=== PATIENT | female | born 1945 | race Caucasian/White ===

== ENCOUNTER 2017-09-02 13:21 | Observation (INO) ==
[2017-09-02 13:51] LABS: Bacteria,Urine Many per hpf (None-Few); Bilirubin,Urine Small (Negative); Blood,Urine Small (Negative); Clarity,Urine Turbid (Clear); Color,Urine Dark Yellow (Yellow); Glucose,Urine (UA) 250 mg/dL (Normal); Hyaline Casts,Urine Few per lpf (None-Few); Ketones,Urine Negative (Negative); Leukocyte Esterase,Urine Moderate (Negative); Nitrite,Urine Positive (Negative); PH,Urine 5.5 pH Units (5.0-8.0); Protein,Urine 30 mg/dL (Neg-Trace); Specific Gravity,Urine 1.024 (1.010-1.025); Squamous Epithelial Cell,Urine Many per lpf (None-Few); Urobilinogen,Urine Normal (Normal); WBC,Urine TNTC per hpf (0-3)
[2017-09-02] MEDS ORDERED: cefTRIAXone 1,000 MG in Water for inj. (sterile) 20 ML 10 ML IVP ONE (15:04)
--- NOTE | 2017-09-02 15:08 | Emergency Department Note ---
Disposition Clinical Impression: UTI (urinary tract infection) Qualifiers: Urinary tract infection type: acute cystitis Hematuria presence: without hematuria Qualified Code(s): N30.00 - Acute cystitis without hematuria Altered mental status Qualifiers: Altered mental status type: unspecified Qualified Code(s): R41.82 - Altered mental status, unspecified Disposition: Admitted As Inpatient Condition: Good General Adult HPI - General Chief complaint: ED Urogenital-Female Stated complaint: confusion, burning while urinating Time Seen by Provider: 09/02/17 13:37 Source: patient Limitations: no limitations Nursing Notes Reviewed: Yes Vital Signs Reviewed: Yes - History of Present Illness HPI Narrative: 71-year-old female with a past medical history of diabetes presents with a couple of days of confusion and about 1-2 weeks of burning with urination and suprapubic discomfort. She states it feels like she has a urinary tract infection. Family members report that she is having some auditory hallucinations and some increased fatigue at home. Family members report that she is hearing voices that she states sounds like her having an affair however her is asleep at the time when family members check on him. She has not had a fever at home. She does not have a history of kidney stones. She is not complaining of flank pain. No nausea or vomiting. Radiation: non-radiation Pain Severity: moderate Pain Scale: 7 Quality: burning Improves with: nothing Worsens with: other (Urination) Associated symptoms: Reports: denies other symptoms Treatments Prior to Arrival: none - Related Data Home Medications Medication Instructions Recorded Confirmed Linagliptin [Tradjenta] 5 mg PO DAILY 09/02/17 09/02/17 Allergies Allergy/AdvReac Type Severity Reaction Status Date / Time codeine AdvReac Hallucinati Verified 09/02/17 17:24 ng morphine AdvReac Vomiting Verified 01/21/16 12:27 All systems ED: reviewed and negative except as stated. Constitutional: Denies: fever ENT ED: Denies: throat pain Cardiovascular: Denies: chest pain Respiratory: Denies: cough Gastrointestinal: Reports: abdominal pain. Denies: nausea, vomiting, diarrhea Musculoskeletal: Denies: back pain, neck pain Integumentary: Denies: rash Neurological: Denies: headache Endocrine: Reports: fatigue Past Medical History - Past Medical History Medical history: Reports: diabetes Psychiatric history: Reports: no psych history - Social History Smoking Status: Never smoker Smokeless Tobacco Status: No Alcohol use: Reports: none Drug use: Reports: none Physical Exam - General Limitations: no limitations General appearance: alert, in no apparent distress - Head Head exam: atraumatic - Eye Eye exam: Present: normal appearance - ENT ENT exam: normal exam - Neck Neck exam: Present: normal inspection - Chest Chest inspection: Present: normal inspection - Respiratory Respiratory exam: Present: normal lung sounds bilaterally. Absent: respiratory distress - Cardiovascular Cardiovascular exam: Present: regular rate, normal rhythm - Abdominal Exam Abdominal exam: Present: soft, tenderness (mild suprapubic, no guarding or rebound) - Extremities Exam Extremities exam: Present: normal inspection - Back Exam Back exam: Present: normal inspection - Neurological Exam Neurological exam: Present: alert, oriented X3, other (Is mildly slow to respond. Does not recognize she was having auditory hallucinations) - Psychiatric Psychiatric exam: Present: normal affect, normal mood - Skin Skin exam: Present: warm, dry Course Course Narrative: UA shows UTI. Will start rocephin. Will obtain labwork/CT head and admit for AMS. Negative head CT. Labwork unremarkable aside from UTI. Will admit. Vital Signs Temperature 97.6 F 09/02/17 13:26 Pulse Rate 76 09/02/17 13:26 Respiratory Rate 18 09/02/17 13:26 Blood Pressure 161/74 09/02/17 13:26 O2 Sat by Pulse Oximetry 98 09/02/17 13:26 Temperature 97.6 F 09/02/17 13:29 Pulse Rate 77 09/02/17 17:40 Respiratory Rate 18 09/02/17 13:29 Blood Pressure 159/88 09/02/17 17:40 O2 Sat by Pulse Oximetry 97 09/02/17 17:40 Oxygen Delivery Oxygen Delivery Room Air Medical Decision Making - Medical Records Medical records reviewed: Yes I reviewed the patient's medical records. - Lab Data Lab results reviewed: Yes I reviewed the patient's lab results. Result diagrams: 09/02/17 15:30 09/02/17 15:30 Lab Results 09/02/17 09/02/17 09/02/17 Range/Units 13:37 15:30 15:30 WBC 4.6 (4.3-11.1) K/mcL RBC 3.87 (3.82-4.97) M/mcL Hgb 11.6 (11.5-15.4) g/dL Hct 34.6 L (35.3-44.9) % MCV 89.4 (83.0-100.0) fL MCH 30.0 (28.0-33.3) pg MCHC 33.5 (31.6-35.5) g/dL RDW 11.3 L (11.5-14.5) % Plt Count 239 (140-400) K/mcL MPV 10.3 (9.4-12.4) fL Immature Gran % 0.4 (0-4) % Seg Neutrophils % 66.2 % Lymphocytes % 22.5 % Monocytes % 8.3 % Eosinophils % 2.2 % Basophils % 0.4 % Neutrophils # 3.0 (1.6-8.9) K/mcL Lymphocytes # 1.0 (0.6-4.6) K/mcL Monocytes # 0.4 (0.0-1.3) K/mcL Eosinophils # 0.1 (0.0-0.6) K/mcL Basophils # 0.0 (0.0-0.2) K/mcL Sodium 136 (136-145) mEq/L Potassium 4.3 (3.5-5.1) mEq/L Chloride 101 (98-107) mEq/L Carbon Dioxide 29 (23-29) mEq/L BUN 18 (8-23) mg/dL Creatinine 1.17 (0.60-1.20) mg/dL Est GFR ( Amer) 55 L (> 60) Est GFR (Non-Af Amer) 46 L (> 60) BUN/Creatinine Ratio 15 (6-26) Glucose 323 H (70-105) mg/dL Calculated Osmolality 296 (280-300) Lactic Acid (0.5-2.2) mmol/L Calcium 9.2 (8.6-10.3) mg/dL Total Bilirubin (0.3-1.0) mg/dL Direct Bilirubin (0.0-0.2) mg/dL Indirect Bilirubin (0.0-1.2) mg/dL AST (13-39) Units/L ALT (7-52) Units/L Alkaline Phosphatase (34-104) Units/L Ammonia (16-53) mcmol/L Troponin I (< 0.04) ng/mL Serum Total Protein (6.4-8.9) g/dL Albumin (3.5-5.7) g/dL Globulin (2.4-3.5) g/dL Albumin/Globulin Ratio (1.1-2.2) Urine Color Dark Yellow (Yellow) Urine Clarity Turbid A (Clear) Urine pH 5.5 (5.0-8.0) pH Units Ur Specific [place] 1.024 (1.010-1.025) Urine Protein 30 H (Neg-Trace) mg/dL Urine Glucose (UA) 250 H (Normal) mg/dL Urine Ketones Negative (Negative) mg/dL Urine Blood Small H (Negative) Urine Nitrite Positive A (Negative) Urine Bilirubin Small H (Negative) Urine Urobilinogen Normal (Normal) mg/dL Ur Leukocyte Esterase Moderate H (Negative) Urine Microscopic RBC 5-15 H (0-3) per hpf Urine Microscopic WBC TNTC H (0-3) per hpf Ur Squamous Epith Cells Many H (None-Few) per lpf Urine Bacteria Many H (None-Few) per hpf Hyaline Casts Few (None-Few) per lpf 09/02/17 09/02/17 09/02/17 Range/Units 15:30 15:30 15:30 WBC (4.3-11.1) K/mcL RBC (3.82-4.97) M/mcL Hgb (11.5-15.4) g/dL Hct (35.3-44.9) % MCV (83.0-100.0) fL MCH (28.0-33.3) pg MCHC (31.6-35.5) g/dL RDW (11.5-14.5) % Plt Count (140-400) K/mcL MPV (9.4-12.4) fL Immature Gran % (0-4) % Seg Neutrophils % % Lymphocytes % % Monocytes % % Eosinophils % % Basophils % % Neutrophils # (1.6-8.9) K/mcL Lymphocytes # (0.6-4.6) K/mcL Monocytes # (0.0-1.3) K/mcL Eosinophils # (0.0-0.6) K/mcL Basophils # (0.0-0.2) K/mcL Sodium (136-145) mEq/L Potassium (3.5-5.1) mEq/L Chloride (98-107) mEq/L Carbon Dioxide (23-29) mEq/L BUN (8-23) mg/dL Creatinine (0.60-1.20) mg/dL Est GFR ( Amer) (> 60) Est GFR (Non-Af Amer) (> 60) BUN/Creatinine Ratio (6-26) Glucose (70-105) mg/dL Calculated Osmolality (280-300) Lactic Acid 1.0 (0.5-2.2) mmol/L Calcium (8.6-10.3) mg/dL Total Bilirubin 0.2 L (0.3-1.0) mg/dL Direct Bilirubin 0.0 (0.0-0.2) mg/dL Indirect Bilirubin 0.2 (0.0-1.2) mg/dL AST 16 (13-39) Units/L ALT 13 (7-52) Units/L Alkaline Phosphatase 71 (34-104) Units/L Ammonia 24 (16-53) mcmol/L Troponin I (< 0.04) ng/mL Serum Total Protein 6.9 (6.4-8.9) g/dL Albumin 3.3 L (3.5-5.7) g/dL Globulin 3.6 H (2.4-3.5) g/dL Albumin/Globulin Ratio 0.9 L (1.1-2.2) Urine Color (Yellow) Urine Clarity (Clear) Urine pH (5.0-8.0) pH Units Ur Specific [place] (1.010-1.025) Urine Protein (Neg-Trace) mg/dL Urine Glucose (UA) (Normal) mg/dL Urine Ketones (Negative) mg/dL Urine Blood (Negative) Urine Nitrite (Negative) Urine Bilirubin (Negative) Urine Urobilinogen (Normal) mg/dL Ur Leukocyte Esterase (Negative) Urine Microscopic RBC (0-3) per hpf Urine Microscopic WBC (0-3) per hpf Ur Squamous Epith Cells (None-Few) per lpf Urine Bacteria (None-Few) per hpf Hyaline Casts (None-Few) per lpf 09/02/17 Range/Units 15:30 WBC (4.3-11.1) K/mcL RBC (3.82-4.97) M/mcL Hgb (11.5-15.4) g/dL Hct (35.3-44.9) % MCV (83.0-100.0) fL MCH (28.0-33.3) pg MCHC (31.6-35.5) g/dL RDW (11.5-14.5) % Plt Count (140-400) K/mcL MPV (9.4-12.4) fL Immature Gran % (0-4) % Seg Neutrophils % % Lymphocytes % % Monocytes % % Eosinophils % % Basophils % % Neutrophils # (1.6-8.9) K/mcL Lymphocytes # (0.6-4.6) K/mcL Monocytes # (0.0-1.3) K/mcL Eosinophils # (0.0-0.6) K/mcL Basophils # (0.0-0.2) K/mcL Sodium (136-145) mEq/L Potassium (3.5-5.1) mEq/L Chloride (98-107) mEq/L Carbon Dioxide (23-29) mEq/L BUN (8-23) mg/dL Creatinine (0.60-1.20) mg/dL Est GFR ( Amer) (> 60) Est GFR (Non-Af Amer) (> 60) BUN/Creatinine Ratio (6-26) Glucose (70-105) mg/dL Calculated Osmolality (280-300) Lactic Acid (0.5-2.2) mmol/L Calcium (8.6-10.3) mg/dL Total Bilirubin (0.3-1.0) mg/dL Direct Bilirubin (0.0-0.2) mg/dL Indirect Bilirubin (0.0-1.2) mg/dL AST (13-39) Units/L ALT (7-52) Units/L Alkaline Phosphatase (34-104) Units/L Ammonia (16-53) mcmol/L Troponin I < 0.03 (< 0.04) ng/mL Serum Total Protein (6.4-8.9) g/dL Albumin (3.5-5.7) g/dL Globulin (2.4-3.5) g/dL Albumin/Globulin Ratio (1.1-2.2) Urine Color (Yellow) Urine Clarity (Clear) Urine pH (5.0-8.0) pH Units Ur Specific [place] (1.010-1.025) Urine Protein (Neg-Trace) mg/dL Urine Glucose (UA) (Normal) mg/dL Urine Ketones (Negative) mg/dL Urine Blood (Negative) Urine Nitrite (Negative) Urine Bilirubin (Negative) Urine Urobilinogen (Normal) mg/dL Ur Leukocyte Esterase (Negative) Urine Microscopic RBC (0-3) per hpf Urine Microscopic WBC (0-3) per hpf Ur Squamous Epith Cells (None-Few) per lpf Urine Bacteria (None-Few) per hpf Hyaline Casts (None-Few) per lpf - Radiology Data Radiology results reviewed: Yes I reviewed the patient's radiology results. - EKG Data EKG #1 EKG attestation: Yes I reviewed and interpreted this EKG. EKG shows normal: sinus rhythm Rate: normal Rhythm: NSR When compared to previous EKG there are: no significant changes Interpretation: nonspecific ST-T wave changes Attestation Statement - Attestation Attestation: I, Alec Stratton, examined this patient and my medical decision-making was reviewed with the CANVAS MARKER/PA/Advanced Practice Nurse/Resident Physician. I agree with the documented findings, disposition and treatment plan as described except to the extent set forth below. 71-year-old female presents to emergency Department with concerns of dysuria and altered mental status. The only states symptoms have been increasing over the past month. They state she has paranoid delusions of her cheating on her and has difficulty remembering the year and current events. Symptoms have been progressive during the past month. Symptoms are similar to previous urinary tract infections. Daughter visited house today and brought her to the emergency department for evaluation. We will evaluate for possible urinary tract infection as well as other etiologies of altered mental status and patient will likely be admitted to the hospital for further care and evaluation.
[2017-09-02] MEDS ORDERED: 0.9 % Sodium Chloride 1,000 ML IVC ONE (15:11)
[2017-09-02 15:51] LABS: Basophils % 0.4 %; Eosinophils # 0.1 K/mcL (0.0-0.6); Eosinophils % 2.2 %; Hematocrit 34.6 % (35.3-44.9); Hemoglobin 11.6 g/dL (11.5-15.4); Immature Granulocytes % 0.4 % (0-4); Lymphocytes % 22.5 %; Mean Corpuscular HGB Conc 33.5 g/dL (31.6-35.5); Mean Corpuscular Volume 89.4 fL (83.0-100.0); Mean Platelet Volume 10.3 fL (9.4-12.4); Monocytes # 0.4 K/mcL (0.0-1.3); Monocytes % 8.3 %; Platelet Count 239 K/mcL (140-400); Red Blood Count 3.87 M/mcL (3.82-4.97); Red Cell Distribution Width 11.3 % (11.5-14.5); Segmented Neutrophils % 66.2 %
[2017-09-02 15:53] LABS: Albumin 3.3 g/dL (3.5-5.7); Albumin/Globulin Ratio 0.9 (1.1-2.2); Bilirubin,Indirect 0.2 mg/dL (0.0-1.2); Bilirubin,Total 0.2 mg/dL (0.3-1.0); Globulin 3.6 g/dL (2.4-3.5); Total Protein 6.9 g/dL (6.4-8.9)
[2017-09-02 15:54] LABS: Calcium 9.2 mg/dL (8.6-10.3); Potassium 4.3 mEq/L (3.5-5.1)
[2017-09-02] MEDS ORDERED: Naloxone 0.4 MG/ML INJ IVP PRN (20:11)
[2017-09-02] MEDS ORDERED: Acetaminophen 325 MG TABLET PO PRN (20:11)
[2017-09-02] MEDS ORDERED: Ondansetron ODT 4 MG TAB.RAPDIS SL PRN (20:42)
--- NOTE | 2017-09-02 20:49 | Internal Med History&Physical ---
<Oziel Daigle - Last Filed: 09/02/17 22:34> Date of Encounter: 09/02/17 Time of Encounter: 20:44 Assessment and Plan (1) UTI (urinary tract infection) Current visit: Yes Status: Acute Acute cystitis without hematuria, unspecified organism Patient is having symptoms of urinary tract infection alongside a urinalysis which did demonstrate UTI There is no indication of severe systemic infection at this time, patient's vitals remained stable Patient's altered mental status may be exacerbated by this I will treat the patient with IV Levaquin Qualifiers: Urinary tract infection type: acute cystitis Hematuria presence: without hematuria Qualified Code(s): N30.00 - Acute cystitis without hematuria (2) Diabetes mellitus Current visit: Yes Status: Acute Insulin-dependent Diabetes mellitus, poorly controlled Patient is hyperglycemic on arrival I will begin a low-dose sliding scale Qualifiers: Diabetes mellitus type: type 2 Diabetes mellitus complication status: without complication Diabetes mellitus assisted insulin use: with assisted use Qualified Code(s): E11.9 - Type 2 diabetes mellitus without complications ; Z79.4 - FPC (current) use of insulin; Z79.4 - watermelon inspector (current) use of insulin; Z79.4 - watermelon inspector (current) use of insulin; Z79.4 - [facility]PC ( current) use of insulin (3) Acute encephalopathy Current visit: Yes Status: Acute Likely secondary to UTI, not seen on exam currently She has apparently suffered from altered status and disorientation for several months AMS is apparently acute past 2 days Urinary tract infection likely does play a role in this altered mental status, history suggests that there may be a larger component to it as well Currently the patient denies any visual or auditory hallucinations, and she is alert and oriented 3 We will continue to watch her mental status as we treat her urinary tract infection CT negative labs not indicative of any encephalopathic state caused by metabolic sources (4) HTN (hypertension) Current visit: Yes Status: Acute Blood pressure is elevated at time of exam I will continue to watch and consider adding medications as needed Qualifiers: Hypertension type: unspecified Qualified Code(s): I10 - Essential (primary ) hypertension (5) DVT prophylaxis Current visit: Yes Status: Acute Subcutaneous heparin Internal Medicine - H&P: HPI Chief complaint: UTI and Altered mental status Admitted From: Emergency Dept Plans for Post Hospital Care: Home History of present illness: Ms. Oliver is a 71 year old female with a history of DM who presented to the ED with symptoms consistent with UTI as well as some confusion. The patient was accompanied by her daughter at the time of presentation, however daughter has left since then. I did speak with the patient's other daughter via telephone and the patient's history is elicited from both the patient and family members. The patient apparently has been suffering from the flu for approximately 3 weeks and was very sick with upper respiratory like symptoms. Over the past week, the patient apparently did have some improvement in symptoms, however as of today she was very confused and disoriented, and she was apparently complaining that there is some pain in the suprapubic area as well as urinary frequency with burning. Her daughter who is a nurse brought her to the emergency room for suspected urinary tract infection. She says that these symptoms of urinary frequency, suprapubic tenderness, burning on urination have been going on for several weeks but were worse in the past 24-48 hours. She denies any blood, discharge, fever, chills. The patient initially denied any issues with confusion or altered for hallucinations, however upon further questioning she did say that she has had some confusion over the past month or 2 and she does not know why. I spoke with the patient's daughter Juana he said that over the past several months she has been having more issues with forgetfulness and confusion. She apparently has complained to her daughter's of conversations that she has heard that did not happen, and she has some paranoid delusions about people being out to get her. These issues appear to occur mostly at nights. Additionally, apparently the patient has had problems with orientation to time and believes that it is around [place] time very frequently. She has no other acute complaints Past Med Surg Social Fam HX - Past Medical History Medical history: diabetes Psychiatric history: no psych history - Past Surgical History Surgical History: appendectomy, cholecystectomy - Social History Smoking Status: Never smoker Smokeless Tobacco Status: No Alcohol use: none Drug use: none Internal Medicine - H&P: Meds Linagliptin [Tradjenta] 5 mg PO DAILY 09/02/17 [History] 3 Allergy/AdvReac Type Severity Reaction Status Date / Time codeine AdvReac Hallucinati Verified 09/02/17 17:24 ng morphine AdvReac Vomiting Verified 01/21/16 12:27 All Systems PM: A 10-system review of systems was performed and is negative for pertinent findings except as documented above in the HPI. Review of systems: - Constitutional: Denies fevers, chills, weight loss - Head/Neck: Denies MCCOY, neck stiffness - EENT: admits to improving cough and congestion, denies dysphagia or odynaphagia - CVS: Denies chest pain, palpitations, MIRANDA, orthopnea, edema, PND, - Pulm: Denies SOB, worsening cough, sputum, hematemesis, wheezing - GI: Denies abdominal pain, anorexia, nausea, vomiting, diarrhea, constipation , melena. Admits to some suprapubic tenderness - : Admits to increased urgency, dysuria Denies hematuria - Heme: Denies ease of bleeding or bruising - MSK: Denies joint pain, limited ROM - Skin: Denies rashes, ulcers, color changes, - Neuro: Denies MCCOY, paresthesias, focal deficits, ataxia. Admits to confusion recently - Constitutional Vitals: Temp Pulse Resp BP Pulse Ox 97.7 F 68 15 155/82 97 09/02/17 19:08 09/02/17 19:08 09/02/17 19:08 09/02/17 19:08 09/02/17 19:08 Exam: Gen.: Vitals noted. No acute distress. AAOx3 HEENT: PERRL/EOMI, oropharynx clear, Normocephalic, atraumatic. Mild hirsutism on the face Neck: Supple. No adenopathy. Cardiac: RRR, no murmur, +S1/S2 Pulmonary: CTA bilaterally, no wheezes, rales or rhonchi, equal chest expansion Abdomen: soft, nontender, BS noted, no guarding Back: Nontender throughout. Extremities: no BLE edema, nontender calf, no cyanosis or clubbing Neuro: A&Ox3, moves all extremities, no focal deficits Psych: Appropriate mood and behavior Internal Med - H&P Results - Labs CBC & Chem 7: 09/02/17 15:30 09/02/17 15:30 <Edmund Bates - Last Filed: 09/03/17 05:16> Date of Encounter: 09/02/17 Time of Encounter: 23:00 - Constitutional Constitutional: fever(s), no chills, no night sweats - EENT Eyes: no blurry vision, no change in vision Nose, mouth and throat: no nasal congestion, no sore throat - Cardiovascular Cardiovascular ROS IM: no chest pain, no dyspnea - Respiratory Respiratory: no cough, no pain on inspiration, no excessive phlegm production, no change in phlegm color - Gastrointestinal Gastrointestinal: abdominal pain (suprpubic), no hematemesis, no hematochezia, no melena - Genitourinary Genitourinary: urinary frequency, no dysuria - Musculoskeletal Musculoskeletal ROS IM: no arthralgias, no back pain - Integumentary Integumentary IM: no rash, no jaundice - Neurological Neurological ROS: no focal weakness, no frequent falls, no headache(s) - Psychiatric Psychiatric: no anxiety, no depression - Endocrine Endocrine IM: no polydipsia, no polyuria - Allergic/Immunologic Allergic/Immunologic: no wheezing, no GI upset with certain foods - Constitutional Vitals: Temp Pulse Resp BP Pulse Ox 97.7 F 82 15 168/77 97 09/03/17 03:23 09/03/17 03:23 09/03/17 03:23 09/03/17 03:23 09/03/17 03:23 General appearance: Present: cooperative, A&O X 2, pleasant, answers questions appropriately (for the most part ) - Head Head exam: Present: normal inspection - Eye Eye exam: Present: PERRL. Absent: scleral icterus Pupils: Present: normal accommodation - ENT ENT exam: Present: mucous membranes dry, normal exam - Neck Neck exam general surgery: Present: supple - Respiratory Respiratory exam: Present: CTAB. Absent: rales, wheezes - Cardiovascular Cardiovascular exam: Present: RRR, +S1, +S2 - GI/Abdominal GI/Abdominal exam: Present: normal bowel sounds, soft, tenderness (mild suprapubic pain). Absent: hepatomegaly, splenomegaly - Extremities Exam Extremities exam: Present: normal capillary refill, warm. Absent: calf tenderness - Neurological Exam Neurological exam: Present: alert, CN II-XII intact, no focal deficits - Psychiatric Psychiatric exam: Present: normal affect, normal mood Internal Med - H&P Results - Labs CBC & Chem 7: 09/02/17 15:30 09/02/17 15:30 - Attending Attestation I discussed the patient [place], PMH, ROS, lab data, and exam findings with Dr. Daigle. I then saw and examined patient independently as well. Patient has been increasingly confused and disoriented as reported to me by ER and staff. However, upon my assessment, patient had minimal confusion. She feels a little better than earlier in the evening. She admits to UTI symptoms. Family is not present to confirm her current mental and cognitive state. Patient has UTI, and it is the likely culprit for her encephalopathy. Other than my comments above and noted exam findings, I agree with Dr. Daigle' s assessment and plan.
[2017-09-02] MEDS ORDERED: *HR* Dextrose 50 % in Water (Syg) 50 ML SYRINGE IVP PRN (21:17)
[2017-09-02] MEDS ORDERED: Dextrose Gel 15 GM/37.5 ML TUBE PO PRN ×2 (21:17)
[2017-09-02] MEDS ORDERED: D5% in Water 1,000 ML IVC PRN (21:17)
[2017-09-03] MEDS ORDERED: *HR* LORazepam 1 MG TABLET PO ONE (00:21)
[2017-09-03] MEDS ORDERED: 0.9 % Sodium Chloride 1,000 ML IVC SCH (00:45)
[2017-09-03] MEDS: *HR* Heparin 5,000 UNIT/ML VIAL SQ SCH ×2 (04:50→16:58)
[2017-09-03 06:50] LABS: BUN/Creatinine Ratio 13 (6-26); Blood Urea Nitrogen 11 mg/dL (8-23); Calcium 8.9 mg/dL (8.6-10.3); Carbon Dioxide 27 mEq/L (23-29); Chloride 104 mEq/L (98-107); Glucose 236 mg/dL (70-105); Osmolality,Calculated 293 (280-300); Potassium 3.9 mEq/L (3.5-5.1); Sodium 138 mEq/L (136-145); eGFR For African Americans > 60 (> 60); eGFR For Non-African Americans > 60 (> 60)
[2017-09-03 07:29] LABS: Basophils % 0.5 %; Eosinophils # 0.1 K/mcL (0.0-0.6); Eosinophils % 2.1 %; Hematocrit 35.2 % (35.3-44.9); Hemoglobin 11.8 g/dL (11.5-15.4); Immature Granulocytes % 0.5 % (0-4); Lymphocytes % 23.2 %; Mean Corpuscular HGB Conc 33.5 g/dL (31.6-35.5); Mean Corpuscular Hemoglobin 29.8 pg (28.0-33.3); Mean Corpuscular Volume 88.9 fL (83.0-100.0); Mean Platelet Volume 10.4 fL (9.4-12.4); Monocytes # 0.3 K/mcL (0.0-1.3); Monocytes % 7.5 %; Neutrophils # 2.8 K/mcL (1.6-8.9); Platelet Count 261 K/mcL (140-400); Red Blood Count 3.96 M/mcL (3.82-4.97); Red Cell Distribution Width 11.2 % (11.5-14.5); Segmented Neutrophils % 66.2 %
[2017-09-03] MEDS: Insulin LISPRO 300 UNITS/3 ML VIAL SQ SCH ×3 (08:17→16:57)
[2017-09-03] MEDS ORDERED: Levofloxacin 750 MG/150 ML 750 MG/150 ML BAG IVPB SCH (09:00)
--- NOTE | 2017-09-03 18:42 | Internal Med Progress Note ---
Date of Encounter: 09/04/17 Time of Encounter: 11:00 - Assessment and plan (1) UTI (urinary tract infection) Current Visit: Yes Status: Acute Assessment and plan: -Urinalysis positive for pyuria; cultures pending -Continue IV Levaquin Qualifiers: Urinary tract infection type: acute cystitis Hematuria presence: without hematuria Qualified Code(s): N30.00 - Acute cystitis without hematuria (2) Acute encephalopathy Current Visit: Yes Status: Acute Assessment and plan: -Suspect secondary to the above; baseline unsure as suspect some underlying dementia (3) Diabetes mellitus Current Visit: Yes Status: Acute Assessment and plan: -Coverage with sliding scale insulin Qualifiers: Diabetes mellitus type: type 2 Diabetes mellitus complication status: without complication Diabetes mellitus long-term insulin use: with intermediate project manager use Qualified Code(s): E11.9 - Type 2 diabetes mellitus without complications ; Z79.4 - intermodal truck driver (current) use of insulin; Z79.4 - residential (current) use of insulin; Z79.4 - residential (current) use of insulin; Z79.4 - residential ( current) use of insulin (4) DVT prophylaxis Current Visit: Yes Status: Acute Assessment and plan: Subcutaneous heparin - Subjective Interval history: Patient's confusion has improved and is alert and oriented 2 Continue treatment for acute cystitis with IV Levaquin - Constitutional Vitals: Temp Pulse Resp BP Pulse Ox 97.7 F 86 18 147/72 97 09/03/17 15:13 09/03/17 15:13 09/03/17 15:13 09/03/17 15:13 09/03/17 15:13 General appearance: Present: cooperative, A&O X 2, pleasant, answers questions appropriately (for the most part ) - Neck Neck exam general surgery: Present: lymphadenopathy, supple, trachea midline - Respiratory Respiratory exam: Present: CTAB. Absent: accessory muscle use, rales, rhonchi, wheezes - Cardiovascular Cardiovascular exam: Present: RRR, +S1, +S2. Absent: diastolic murmur, gallop, rubs, systolic murmur Internal Medicine: Result - Labs CBC & Chem 7: 09/03/17 06:15 09/03/17 06:15 Labs: Short CBC 09/03/17 Range/Units 06:15 WBC 4.3 (4.3-11.1) K/mcL Hgb 11.8 (11.5-15.4) g/dL Hct 35.2 L (35.3-44.9) % Plt Count 261 (140-400) K/mcL Neutrophils # 2.8 (1.6-8.9) K/mcL BMP 09/03/17 06:15 Sodium 138 Potassium 3.9 Chloride 104 Carbon Dioxide 27 BUN 11 Creatinine 0.85 Glucose 236 H Calcium 8.9 Consult Discharge Plan - Plan Referrals: Luigi Lindo MD [Primary Care Provider] -
[2017-09-03] MEDS ORDERED: Insulin LISPRO 300 UNITS/3 ML VIAL SQ SCH (21:00)
[2017-09-04] MEDS ORDERED: Haloperidol Lactate 5 MG/ML VIAL IVP ONE
[2017-09-04] MEDS: *HR* Heparin 5,000 UNIT/ML VIAL SQ SCH (05:20)
[2017-09-04] MEDS: Insulin LISPRO 300 UNITS/3 ML VIAL SQ SCH ×2 (08:31→12:02)
[2017-09-04 08:59] LABS: Basophils % 0.3 %; Eosinophils # 0.1 K/mcL (0.0-0.6); Eosinophils % 2.1 %; Hematocrit 32.9 % (35.3-44.9); Hemoglobin 11.2 g/dL (11.5-15.4); Immature Granulocytes % 0.3 % (0-4); Lymphocytes # 1.1 K/mcL (0.6-4.6); Lymphocytes % 34.1 %; Mean Corpuscular Hemoglobin 30.1 pg (28.0-33.3); Mean Corpuscular Volume 88.4 fL (83.0-100.0); Mean Platelet Volume 10.4 fL (9.4-12.4); Monocytes # 0.3 K/mcL (0.0-1.3); Monocytes % 10.4 %; Neutrophils # 1.7 K/mcL (1.6-8.9); Platelet Count 229 K/mcL (140-400); Red Blood Count 3.72 M/mcL (3.82-4.97); Red Cell Distribution Width 11.4 % (11.5-14.5); Segmented Neutrophils % 52.8 %
[2017-09-04 09:13] LABS: BUN/Creatinine Ratio 12 (6-26); Blood Urea Nitrogen 11 mg/dL (8-23); Calcium 8.9 mg/dL (8.6-10.3); Carbon Dioxide 29 mEq/L (23-29); Chloride 104 mEq/L (98-107); Glucose 222 mg/dL (70-105); Osmolality,Calculated 292 (280-300); Sodium 138 mEq/L (136-145); eGFR For African Americans > 60 (> 60); eGFR For Non-African Americans 59 (> 60)
[2017-09-04 11:04] VITALS: BP 144/77
--- NOTE | 2017-09-04 14:17 | Discharge Summary ---
Date of Encounter: 09/04/17 Time of Encounter: 11:00 - Discharge Diagnosis (1) UTI (urinary tract infection) Priority: Primary Status: Acute Qualifiers: Urinary tract infection type: acute cystitis Hematuria presence: without hematuria Qualified Code(s): N30.00 - Acute cystitis without hematuria (2) Acute encephalopathy Priority: Secondary Status: Acute (3) Diabetes mellitus Priority: Secondary Status: Acute Qualifiers: Diabetes mellitus type: type 2 Diabetes mellitus complication status: without complication Diabetes mellitus fci insulin use: with fci use Qualified Code(s): E11.9 - Type 2 diabetes mellitus without complications ; Z79.4 - skilled nursing (current) use of insulin; Z79.4 - intermediate project manager (current) use of insulin; Z79.4 - intermediate project manager (current) use of insulin; Z79.4 - skilled nursing ( current) use of insulin - Discharge Medications Prescriptions: Levofloxacin [Levaquin] 500 mg PO DAILY 3 Days #3 tablet Home Medications: Linagliptin [Tradjenta] 5 mg PO DAILY 09/02/17 [History] Levofloxacin [Levaquin] 500 mg PO DAILY 3 Days #3 tablet 09/04/17 [Rx] Allergies/Adverse Reactions: 3 Allergy/AdvReac Type Severity Reaction Status Date / Time codeine AdvReac Hallucinati Verified 09/02/17 17:24 ng morphine AdvReac Vomiting Verified 01/21/16 12:27 Procedures/tests Complete & Pending: Procedures Performed prior 72 hours Category Date Time Status ECG 12 lead ECG [ECG] Stat Y 09/03/17 23:35 Ordered Date of admission: 09/02/17 17:25 Primary care physician: Luigi Lindo MD Consults: 09/04/17 00:03 Consult to Events Administrative Assistant [CONS] Routine Reason for SW Consult: Lives with spouse who is alcoholic. Lost job 3-4 weeks ago. "Under a lot of stress." - Patient Status Disposition: Home, Self-Care Condition: Good - Discharge Instructions Follow Up With: Luigi Lindo MD [Primary Care Provider] - Hospital course: Patient is a 71-year-old female with past medical history significant for diabetes who presented to the ER on 09/02/17 with urinary symptoms and some confusion. Family reports that patient has been confused over the last several days in addition to complaining of urinary symptoms so decided to bring patient to the ER for evaluation. In the ER, patient was found to have pyuria; CT of the head showed no acute intracranial process. Patient was admitted to the medical floor for treatment of acute cystitis. During patients hospital stay her confusion improved after treatment with IV Levaquin. Suspect patient is at her baseline mentation and will discharge home to continue a 3 day course of Levaquin. Patient is to follow-up with her primary care provider. - Time Spent with Patient Total time spent providing and/or coordinating discharge services: Less than 30 minutes - Constitutional Vitals: Temp Pulse Resp BP Pulse Ox 98.1 F 77 14 144/77 98 09/04/17 10:51 09/04/17 10:51 09/04/17 10:51 09/04/17 10:51 09/04/17 10:51 General appearance: Present: cooperative, A&O X 2, pleasant, answers questions appropriately (for the most part ) - Respiratory Respiratory exam: Present: CTAB. Absent: accessory muscle use, rales, rhonchi, wheezes - Cardiovascular Cardiovascular exam: Present: RRR, +S1, +S2. Absent: diastolic murmur, gallop, rubs, systolic murmur
--- NOTE | 2017-09-06 06:52 | Electrocardiograph Report ---
[place] [id number] Test Date: 2017-09-02 Pat Name: Mimi Oliver Department: 104 Room: 3A31 Gender: F Probation Worker: : 1945 Requested By: Jose Ugalde Order Number: [id number] Reading MD: Juliano La MD Measurements Intervals [place] Rate: 69 P: 29 [place]: 145 QRS: -17 QRSD: 87 T: 66 QT: 400 QTc: 418 Interpretive Statements SINUS RHYTHM WITH OCCASIONAL SUPRAVENTRICULAR PREMATURE COMPLEXES LEFT VENTRICULAR HYPERTROPHY AND ST-T CHANGE Electronically Signed On 09-06-2017 6:51:07 EST by Juliano La MD
--- NOTE | 2017-09-07 09:18 | Electrocardiograph Report ---
[place] [id number] Test Date: 2017-09-03 Pat Name: Mimi Oliver Department: 115 Room: 3A31 Gender: F Commercial Review Appraiser: [id number] : 1945 Requested By: Dixie Villegas Order Number: [id number] Reading MD: Juliano La MD Measurements Intervals [place] Rate: 74 P: 44 SC: 148 QRS: -19 QRSD: 84 T: 63 QT: 395 QTc: 423 Interpretive Statements SINUS RHYTHM Electronically Signed On 09-07-2017 9:17:35 EST by Juliano La MD
== END 2017-09-04 15:45 | disposition home or self-care (01) | DRG 689 ==
LOC: EMEROO 13:21 → INTOOBSV 17:25 → 3ANU 17:25
PROVIDERS: ADMIT Hospitalist; ATTEND Hospitalist

== ENCOUNTER 2018-03-08 11:25 | Observation (INO) ==
[2018-03-08] MEDS ORDERED: Aspirin 81 MG TAB.CHEW PO ONE (11:34)
[2018-03-08] MEDS ORDERED: Nitroglycerin 0.4 MG TAB.SUBL SL ONE (11:34)
--- NOTE | 2018-03-08 11:51 | Emergency Department Note ---
Disposition Clinical Impression: Chest pain Qualifiers: Chest pain type: unspecified Qualified Code(s): R07.9 - Chest pain, unspecified Disposition: Admitted As Inpatient Condition: Good Forms: ED Satisfaction Letter Time of Disposition: 12:48 General Adult HPI - General Stated complaint: CP Time Seen by Provider: 03/08/18 11:32 Source: patient, family Mode of arrival: ambulatory Limitations: no limitations Nursing Notes Reviewed: Yes Vital Signs Reviewed: Yes - History of Present Illness HPI Narrative: Patient is a 72-year-old female that presents emergency department with acute onset chest pain. Patient states that the pain began shortly prior to arrival. Patient states that the pain began in her right arm and went into her shoulder and neck and then developed chest pain on the center of her chest. Patient describes it as pressure. Patient states that she has never had anything like this before. Patient states that nothing really seems to make her pain any better or worse. Patient also reports that she has had some associated shortness of breath and nausea but has not been diaphoretic. Patient is very shaky go to take for her chest pain prior to arrival. Pain Scale: 7 - Related Data Home Medications Medication Instructions Recorded Confirmed Linagliptin [Tradjenta] 5 mg PO DAILY 09/02/17 09/02/17 Previous Rx's Medication Instructions Recorded Levofloxacin [Levaquin] 500 mg PO DAILY 3 Days #3 tablet 09/04/17 methylPREDNISolone [Medrol] 4 mg PO TAPER #21 tablet 10/28/17 Allergies Allergy/AdvReac Type Severity Reaction Status Date / Time codeine AdvReac Hallucinati Verified 10/08/17 08:47 ng morphine AdvReac Vomiting Verified 10/08/17 08:47 All systems ED: reviewed and negative except as stated. Cardiovascular: Reports: chest pain Respiratory: Reports: dyspnea Musculoskeletal: Reports: other (right arm pain) Integumentary: Reports: rash (on abdomen ) Past Medical History - Past Medical History Medical history: Reports: diabetes, hyperlipidemia Surgical history: Reports: appendectomy, cholecystectomy Psychiatric history: Reports: no psych history - Social History Smoking Status: Never smoker Smokeless Tobacco Status: No Alcohol use: Reports: rarely Drug use: Reports: none Physical Exam - General Limitations: no limitations General appearance: alert, in distress - Head Head exam: atraumatic, normocephalic - Eye Eye exam: Present: normal appearance, EOMI - Respiratory Respiratory exam: Present: normal lung sounds bilaterally. Absent: respiratory distress, wheezes - Cardiovascular Cardiovascular exam: Present: regular rate, normal rhythm, normal heart sounds, +S1, +S2 - Abdominal Exam Abdominal exam: Present: soft, Non-Tender, normal bowel sounds - Neurological Exam Neurological exam: Present: alert, oriented X3 - Psychiatric Psychiatric exam: Present: normal affect, normal mood - Skin Skin exam: Present: warm, dry, intact, rash (around umbilicus) Course Vital Signs Temperature 97.5 F L 03/08/18 11:30 Pulse Rate 80 03/08/18 11:30 Respiratory Rate 14 03/08/18 11:30 Blood Pressure 186/92 03/08/18 11:30 O2 Sat by Pulse Oximetry 100 03/08/18 11:30 Temperature 97.5 F L 03/08/18 11:30 Pulse Rate 80 03/08/18 11:30 Respiratory Rate 14 03/08/18 11:30 Blood Pressure 171/81 03/08/18 11:40 O2 Sat by Pulse Oximetry 100 03/08/18 11:37 Oxygen Delivery Oxygen Delivery Room Air Medical Decision Making - MDM Narrative Medical decision making narrative: Due to the patient presenting to the emergency department with chest pain and short of breath we will obtain CBC, BMP, troponin chest x-ray EKG. patient also be given aspirin and nitroglycerin here in the emergency department. Patient's troponin was negative. Chest x-ray did not show any acute cardio pulmonary process. EKG did show some mild depressions. Patient does have a mild leukopenia of 4.1 which is nonspecific. Patient does have decreased kidney function however this appears to be chronic in nature. Due to the patient having some depressions on EKG and chest pain that has now resolved feel that the patient does need to be admitted to the hospital for further evaluation and management. I called and spoke to Dr. John and he has accepted the patient to their service. Patient be admitted to the hospital at this time for further evaluation and management. - Medical Records Medical records reviewed: Yes I reviewed the patient's medical records. - Lab Data Lab results reviewed: Yes I reviewed the patient's lab results. Result diagrams: 03/08/18 11:40 03/08/18 11:40 Lab Results 03/08/18 03/08/18 03/08/18 Range/Units 11:40 11:40 11:40 WBC 4.1 L (4.3-11.1) K/mcL RBC 4.35 (3.82-4.97) M/mcL Hgb 13.8 (11.5-15.4) g/dL Hct 39.3 (35.3-44.9) % MCV 90.3 (83.0-100.0) fL MCH 31.7 (28.0-33.3) pg MCHC 35.1 (31.6-35.5) g/dL RDW 12.7 (11.5-14.5) % Plt Count 142 (140-400) K/mcL MPV 10.9 (9.4-12.4) fL Immature Gran % 0.2 (0-4) % Seg Neutrophils % 62.3 % Lymphocytes % 26.1 % Monocytes % 7.9 % Eosinophils % 3.0 % Basophils % 0.5 % Neutrophils # 2.5 (1.6-8.9) K/mcL Lymphocytes # 1.1 (0.6-4.6) K/mcL Monocytes # 0.3 (0.0-1.3) K/mcL Eosinophils # 0.1 (0.0-0.6) K/mcL Basophils # 0.0 (0.0-0.2) K/mcL PT 10.2 (9.4-12.1) Seconds INR 0.9 APTT 34.7 (26.0-36.0) Seconds Sodium 138 (136-145) mEq/L Potassium 4.4 (3.5-5.1) mEq/L Chloride 106 (98-107) mEq/L Carbon Dioxide 24 (23-29) mEq/L BUN 25 H (8-23) mg/dL Creatinine 1.07 (0.60-1.20) mg/dL Est GFR ( Amer) > 60 (> 60) Est GFR (Non-Af Amer) 50 L (> 60) BUN/Creatinine Ratio 23 (6-26) Glucose 319 H (70-105) mg/dL Calculated Osmolality 303 H (280-300) Calcium 9.8 (8.6-10.3) mg/dL - Radiology Data Radiology results reviewed: Yes I reviewed the patient's radiology results. Chest X-Ray 03/08/18 11:34 IMPRESSION: Stable appearing chest without acute cardiopulmonary process. D/ / Jey Barber MD / Jey Barber MD Interpreting Provider: Jey Barber MD - EKG Data EKG #1 EKG attestation: Yes I reviewed and interpreted this EKG. EKG results narrative: EKG shows a sinus rhythm at a rate of 75 bpm, TN interval of 129, QRS duration 86, QTc of 445 with a normal axis. There is evidence of mild ST elevation in aVR as well as mild depressions in V3, V4, V5 and V6. Compared to previous EKG on 10/08/17 which showed a sinus rhythm and rate of 68 bpm. Heart Score - Score History: Moderately Suspicious EKG: Significant ST-Depression Age: Greater than 65 Risk Factors: 1-2 risk factors Troponin: Less than normal limit HEART Score Total: 6
[2018-03-08 11:58] LABS: Basophils % 0.5 %; Eosinophils # 0.1 K/mcL (0.0-0.6); Hematocrit 39.3 % (35.3-44.9); Hemoglobin 13.8 g/dL (11.5-15.4); Immature Granulocytes % 0.2 % (0-4); Lymphocytes # 1.1 K/mcL (0.6-4.6); Lymphocytes % 26.1 %; Mean Corpuscular HGB Conc 35.1 g/dL (31.6-35.5); Mean Corpuscular Hemoglobin 31.7 pg (28.0-33.3); Mean Corpuscular Volume 90.3 fL (83.0-100.0); Mean Platelet Volume 10.9 fL (9.4-12.4); Monocytes # 0.3 K/mcL (0.0-1.3); Monocytes % 7.9 %; Neutrophils # 2.5 K/mcL (1.6-8.9); Platelet Count 142 K/mcL (140-400); Red Blood Count 4.35 M/mcL (3.82-4.97); Red Cell Distribution Width 12.7 % (11.5-14.5); Segmented Neutrophils % 62.3 %
[2018-03-08 12:03] LABS: INR 0.9; Prothrombin Time 10.2 Seconds (9.4-12.1)
[2018-03-08 12:05] LABS: Activated Partial Thrombo Time 34.7 Seconds (26.0-36.0)
--- NOTE | 2018-03-08 12:09 | Emergency Department Note ---
Disposition Clinical Impression: Chest pain Disposition: Admitted As Inpatient Condition: Good General Adult HPI - General Chief complaint: ED Chest Pain Stated complaint: CP Time Seen by Provider: 03/08/18 11:32 Source: patient, family Mode of arrival: ambulatory Limitations: no limitations - History of Present Illness Pain Scale: 7 - Related Data Home Medications Medication Instructions Recorded Confirmed Insulin DETEMIR [Levemir] 4 unit SQ BID 03/08/18 03/08/18 Allergies Allergy/AdvReac Type Severity Reaction Status Date / Time codeine Allergy Difficulty Verified 03/08/18 12:59 Swallowing morphine Allergy Difficulty Verified 03/08/18 12:59 Swallowing Cardiovascular: Reports: chest pain Respiratory: Reports: dyspnea Musculoskeletal: Reports: other (right arm pain) Integumentary: Reports: rash (on abdomen ) Past Medical History - Past Medical History Medical history: Reports: diabetes, hyperlipidemia Surgical history: Reports: appendectomy, cholecystectomy Psychiatric history: Reports: no psych history - Social History Smoking Status: Never smoker Smokeless Tobacco Status: No Alcohol use: Reports: rarely Drug use: Reports: none Physical Exam - General Limitations: no limitations General appearance: alert, in distress Course Vital Signs Temperature 97.5 F L 03/08/18 11:30 Pulse Rate 80 03/08/18 11:30 Respiratory Rate 14 03/08/18 11:30 Blood Pressure 186/92 03/08/18 11:30 O2 Sat by Pulse Oximetry 100 03/08/18 11:30 Temperature 98.1 F 03/08/18 13:48 Pulse Rate 74 03/08/18 13:48 Respiratory Rate 15 03/08/18 13:48 Blood Pressure 152/77 03/08/18 13:48 O2 Sat by Pulse Oximetry 97 03/08/18 13:48 Oxygen Delivery Oxygen Delivery Room Air Medical Decision Making - Lab Data Result diagrams: 03/08/18 11:40 03/08/18 11:40 Lab Results 03/08/18 03/08/18 03/08/18 Range/Units 11:40 11:40 11:40 WBC 4.1 L (4.3-11.1) K/mcL RBC 4.35 (3.82-4.97) M/mcL Hgb 13.8 (11.5-15.4) g/dL Hct 39.3 (35.3-44.9) % MCV 90.3 (83.0-100.0) fL MCH 31.7 (28.0-33.3) pg MCHC 35.1 (31.6-35.5) g/dL RDW 12.7 (11.5-14.5) % Plt Count 142 (140-400) K/mcL MPV 10.9 (9.4-12.4) fL Immature Gran % 0.2 (0-4) % Seg Neutrophils % 62.3 % Lymphocytes % 26.1 % Monocytes % 7.9 % Eosinophils % 3.0 % Basophils % 0.5 % Neutrophils # 2.5 (1.6-8.9) K/mcL Lymphocytes # 1.1 (0.6-4.6) K/mcL Monocytes # 0.3 (0.0-1.3) K/mcL Eosinophils # 0.1 (0.0-0.6) K/mcL Basophils # 0.0 (0.0-0.2) K/mcL PT 10.2 (9.4-12.1) Seconds INR 0.9 APTT 34.7 (26.0-36.0) Seconds Sodium 138 (136-145) mEq/L Potassium 4.4 (3.5-5.1) mEq/L Chloride 106 (98-107) mEq/L Carbon Dioxide 24 (23-29) mEq/L BUN 25 H (8-23) mg/dL Creatinine 1.07 (0.60-1.20) mg/dL Est GFR ( Amer) > 60 (> 60) Est GFR (Non-Af Amer) 50 L (> 60) BUN/Creatinine Ratio 23 (6-26) Glucose 319 H (70-105) mg/dL Calculated Osmolality 303 H (280-300) Calcium 9.8 (8.6-10.3) mg/dL Troponin I < 0.03 (< 0.04) ng/mL Attestation Statement - Attestation Attestation: I examined this patient and my medical decision-making was reviewed with the Resident Physician. I agree with the documented findings, disposition and treatment plan as described except to the extent set forth below. Patient presents to the ED with a chief complaint of chest pain. Onset just prior to arrival. On my evaluation the chest pain is resolved but she still having pain in the left shoulder. Patient states is been years since she had a stress test. On examination she is in no acute distress. The pain in her left shoulder is not reproducible to palpation. Her lungs are clear. Plan. EKG has some ST depressions. These appear new since the last one. Cardiac workup and likely admission. Nitroglycerin attempting to get her pain-free at this time.
[2018-03-08 12:11] LABS: BUN/Creatinine Ratio 23 (6-26); Blood Urea Nitrogen 25 mg/dL (8-23); Calcium 9.8 mg/dL (8.6-10.3); Carbon Dioxide 24 mEq/L (23-29); Chloride 106 mEq/L (98-107); Glucose 319 mg/dL (70-105); Osmolality,Calculated 303 (280-300); Potassium 4.4 mEq/L (3.5-5.1); Sodium 138 mEq/L (136-145); eGFR For Non-African Americans 50 (> 60)
[2018-03-08 12:18] LABS: Troponin I < 0.03 ng/mL (< 0.04)
[2018-03-08] MEDS ORDERED: Naloxone 0.4 MG/ML INJ IVP PRN (13:19)
[2018-03-08] MEDS ORDERED: Dextrose Gel 15 GM/37.5 ML TUBE PO PRN ×2 (13:29)
[2018-03-08] MEDS ORDERED: D5% in Water 1,000 ML IVC PRN (13:29)
[2018-03-08] MEDS ORDERED: *HR* Dextrose 50 % in Water (Syg) 50 ML SYRINGE IVP PRN (13:29)
--- NOTE | 2018-03-08 13:34 | Internal Med History&Physical ---
Addendum entered and electronically signed by Lina Diallo 03/08/18 14:10: Bp is uncontrolled @ 168/85. Will add lisinopril 2.5 mg daily. Patient has history, but no home medications for hypertension Original Note: <Lina Diallo - Last Filed: 03/08/18 13:57> Date of Encounter: 03/08/18 Time of Encounter: 13:32 Internal Medicine - H&P: HPI Chief complaint: Chest pain with left arm radiation Admitted From: Home Plans for Post Hospital Care: Home History of present illness: Ms. Oliver is a 72 year old female with history of HTN, and DM. Patient presents today with intermittent chest pain, that began prior to arrival to arriving to the hospital. The patient pain is competely relieved at this time. Family stated she had a similar episode about 3 years ago? The indicated testing was done here at [place]. The patient stated she thought she had a stress test, and daughter thought she had a heart catheter. I asked the results of these test and they both thought they were within normal limits. Unable to locate testing in [facility]. Troponin is within normal range less than 0.03, and the patient EKG showed sinus rhythm rate of [address] elevation in aVR, and mild depression in V3, V4, V5 and V6. This is different from previous EKG. Patient has significant cardiac family history, patient's mother at age 61 from an [place]. Uncles on mother's side to with heart trouble, one at 70 due to heart issues. Patient stated father is unknown. Chest x-ray is negative for acute abnormalities. BP is elevated at 161/85, no antihypertensive home meds. Blood glucose also elevated at 319. The patient indicated has been out of control at home for a while. We will get A1c in a.m. Past Med Surg Social Fam HX - Past Medical History Medical history: diabetes, hyperlipidemia Psychiatric history: no psych history - Past Surgical History Surgical History: appendectomy, cholecystectomy Additional surgical history: T&A - Social History Smoking Status: Never smoker Smokeless Tobacco Status: No Alcohol use: rarely Drug use: none Internal Medicine - H&P: Meds Insulin DETEMIR [Levemir] 4 unit SQ BID 03/08/18 [History] 3 Allergy/AdvReac Type Severity Reaction Status Date / Time codeine Allergy Difficulty Verified 03/08/18 12:59 Swallowing morphine Allergy Difficulty Verified 03/08/18 12:59 Swallowing All Systems PM: A 10-system review of systems was performed and is negative for pertinent findings except as documented above in the HPI. - Constitutional Constitutional: no chills, no fever(s), no night sweats - EENT Eyes: no change in vision, no discharge, no pain, no photophobia Ears: no ear discharge, no ear pain, no tinnitus Nose, mouth and throat: no dysphagia, no nasal discharge, no neck pain, no sore throat - Cardiovascular Cardiovascular ROS IM: chest pain, no diaphoresis, no dyspnea, no lightheadedness, no palpitations, no syncope - Respiratory Respiratory: dyspnea, no cough, no wheezing, no excessive phlegm production - Gastrointestinal Gastrointestinal: nausea, no abdominal pain, no diarrhea, no hematemesis, no hematochezia, no melena, no vomiting - Genitourinary Genitourinary: no change in urinary stream, no dysuria, no flank pain, no hematuria - Musculoskeletal Musculoskeletal ROS IM: no numbness, no tingling - Integumentary Integumentary IM: no rash, no unusual bruising - Neurological Neurological ROS: no confusion, no convulsions, no focal weakness, no numbness, no tingling, no tremor(s) - Hematologic/Lymphatic Hematologic/Lymphatic: no easy bruising - Constitutional Vitals: Temp Pulse Resp BP Pulse Ox 97.5 F L 75 20 158/82 98 03/08/18 11:30 03/08/18 12:13 03/08/18 12:59 03/08/18 12:59 03/08/18 12:13 General appearance: Present: cooperative, A&O X 3, answers questions appropriately - Head Head exam: Present: atraumatic, normocephalic - Eye Eye exam: Present: PERRL, conjuntiva pink, sclera anicteric Pupils: Present: PERRL - Neck Neck exam general surgery: Present: supple, trachea midline. Absent: lymphadenopathy - Respiratory Respiratory exam: Present: CTAB. Absent: accessory muscle use, rales, rhonchi, wheezes - Cardiovascular Cardiovascular exam: Present: RRR, +S1, +S2. Absent: diastolic murmur, gallop, rubs, systolic murmur - GI/Abdominal GI/Abdominal exam: Present: normal bowel sounds, soft, no peritoneal signs. Absent: distended, tenderness - Extremities Exam Extremities exam: Present: warm, radial pulses palpable and symmetrical. Absent : calf tenderness, cyanotic, pedal edema - Neurological Exam Neurological exam: Present: CN II-XII intact, oriented X3, no focal deficits. Absent: pronater drift, facial droop, speech deficit - Skin Skin exam: Present: dry, intact Internal Med - H&P Results - Labs CBC & Chem 7: 03/08/18 11:40 03/08/18 11:40 - Assessment and plan (1) Chest pain Current Visit: No Status: Acute Assessment and plan: Intermittent chest pain with left arm radiation-Last episode was 2014?, no records available in [facility]. Patient stated she thought she had a stress test done at that time and dtr thought she also had a a heart cath.-Both indicated it was here at [place]. Echo scheduled Stress test in am Monitor daily labs FLP in am Nitroglycerin prn Oxygen prn keep sats gt 94% Monitor serial cardiac troponins x3 Qualifiers: Chest pain type: unspecified Qualified Code(s): R07.9 - Chest pain, unspecified (2) Diabetes mellitus Current Visit: No Status: Acute Assessment and plan: Blood sugar is uncontrolled at 318 Ac/Hs with moderate insulin humalog coverage AIC in am Continue Levemir dosing twice a day Qualifiers: Diabetes mellitus type: type 2 Diabetes mellitus watermelon inspector insulin use: with watermelon inspector use Diabetes mellitus complication status: without complication Qualified Code(s): E11.9 - Type 2 diabetes mellitus without complications; Z79.4 - intermediate school teacher (current) use of insulin (3) HTN (hypertension) Current Visit: No Status: Acute Qualifiers: Hypertension type: unspecified Qualified Code(s): I10 - Essential (primary ) hypertension - Time Spent With Patient Total time spent is greater than 50% in coordination of care (as documented) at patient's floor/unit and/or counseling patient: less than 15 minutes <Reji Paul - Last Filed: 03/08/18 14:54> Date of Encounter: 03/08/18 Internal Medicine - H&P: HPI History of present illness: Ms. Oliver is a 72 year old female All Systems PM: A 10-system review of systems was performed and is negative for pertinent findings except as documented above in the HPI. - Constitutional Vitals: Temp Pulse Resp BP Pulse Ox 98.1 F 74 15 152/77 97 03/08/18 13:48 03/08/18 13:48 03/08/18 13:48 03/08/18 13:48 03/08/18 13:48 Internal Med - H&P Results - Labs CBC & Chem 7: 03/08/18 11:40 03/08/18 11:40 - Attending Attestation I have performed a face- to face examination of this patient and participated in formulation of castano components of Assessment and plan with the WINDOW CASER. 72-year-old female with a past medical history of diabetes which seems to be poorly controlled who comes in with exertional dyspnea and chest tightness more so on the left side with no radiation to the arm with an EKG showing mild ST segment depression in the anterior leads. On examination she does not have tenderness to palpation on the chest wall and pulmonary system examination is normal. S1-S2 normal no murmurs rubs or gallops heard. Agree with assessment and plan outlined in nurse practitioner's documentation. We will place the patient on telemetry monitoring and check serial cardiac enzymes. She will undergo a stress test. Consider cardiology consultation if needed. Rest as per the plan for - Time Spent With Patient Total time spent is greater than 50% in coordination of care (as documented) at patient's floor/unit and/or counseling patient:
[2018-03-08] MEDS ORDERED: Nitroglycerin 0.4 MG TAB.SUBL SL PRN (13:47)
[2018-03-08] MEDS: Insulin LISPRO 300 UNITS/3 ML VIAL SQ SCH ×2 (17:51→22:06)
--- NOTE | 2018-03-08 21:15 | Electrocardiograph Report ---
[facility] Test Date: 2018-03-08 Pat Name: Mimi Oliver Department: 104 Room: 3B32 Gender: F Set Up Worker: : 1945 Requested By: Leo James Order Number: [id number] Reading MD: Amanuel Aguilar Measurements Intervals [place] Rate: 75 P: 24 [place]: 129 QRS: -16 QRSD: 86 T: 61 QT: 416 QTc: 445 Interpretive Statements SINUS RHYTHM Electronically Signed On 03-08-2018 21:13:56 EDT by Amanuel Aguilar
[2018-03-08] MEDS: Insulin DETEMIR 100 UNIT/ML X5UNITS SQ SCH (22:07)
[2018-03-09] MEDS ORDERED: Ondansetron 4 MG/2 ML VIAL IVP PRN (01:17)
[2018-03-09 05:07] LABS: Basophils % 0.4 %; Eosinophils # 0.1 K/mcL (0.0-0.6); Eosinophils % 2.4 %; Hematocrit 37.8 % (35.3-44.9); Hemoglobin 13.2 g/dL (11.5-15.4); Immature Granulocytes % 0.2 % (0-4); Lymphocytes # 1.4 K/mcL (0.6-4.6); Lymphocytes % 28.3 %; Mean Corpuscular HGB Conc 34.9 g/dL (31.6-35.5); Mean Corpuscular Hemoglobin 31.4 pg (28.0-33.3); Mean Platelet Volume 11.1 fL (9.4-12.4); Monocytes # 0.3 K/mcL (0.0-1.3); Monocytes % 6.9 %; Platelet Count 130 K/mcL (140-400); Red Cell Distribution Width 12.6 % (11.5-14.5); Segmented Neutrophils % 61.8 %
[2018-03-09] MEDS: *HR* Heparin 5,000 UNIT/ML VIAL SQ SCH ×2 (05:14→17:10)
[2018-03-09 05:24] LABS: Troponin I < 0.03 ng/mL (< 0.04)
[2018-03-09 05:25] LABS: BUN/Creatinine Ratio 22 (6-26); Blood Urea Nitrogen 22 mg/dL (8-23); Calcium 9.2 mg/dL (8.6-10.3); Carbon Dioxide 20 mEq/L (23-29); Chloride 108 mEq/L (98-107); Chol/HDL Ratio 3.2 (0-4.9); Cholesterol 214 mg/dL (< 200); Glucose 163 mg/dL (70-105); HDL Cholesterol 66 mg/dL (40-59); LDL Cholesterol,Calculated 132 mg/dL (0-99); Magnesium 1.8 mg/dL (1.6-2.6); Osmolality,Calculated 297 (280-300); Potassium 4.7 mEq/L (3.5-5.1); Sodium 140 mEq/L (136-145); Triglycerides 80 mg/dL (< 150); eGFR For Non-African Americans 55 (> 60)
[2018-03-09] MEDS ORDERED: Regadenoson 0.4 MG/5 ML SYRINGE IVP ONE (05:44)
[2018-03-09] MEDS: Insulin DETEMIR 100 UNIT/ML X5UNITS SQ SCH ×2 (07:30→21:45)
[2018-03-09] MEDS ORDERED: *HR* LORazepam 2 MG/ML VIAL IVP STA (07:51)
[2018-03-09] MEDS: Insulin LISPRO 300 UNITS/3 ML VIAL SQ SCH ×4 (08:07→21:44)
[2018-03-09 08:57] LABS: Estimated Average Glucose 166 mg/dl; Hemoglobin A1C 7.4 %
--- NOTE | 2018-03-09 10:16 | Internal Med Progress Note ---
Date of Encounter: 03/09/18 Time of Encounter: 10:14 - Assessment and plan (1) Chest pain Current Visit: Yes Status: Acute Assessment and plan: presented with chest pain that radiated to right neck and right arm. History remote SD. Does not follow with cardiology. Serial troponin negative, EKG without acute ST changes. Stress test, echocardiogram pending. ASA, statin Qualifiers: Chest pain type: unspecified Qualified Code(s): R07.9 - Chest pain, unspecified (2) Acute encephalopathy Current Visit: No Status: Acute Assessment and plan: became acutely confused after receiving Ativan was given for anxiety/ claustrophobia to complete stress test. Baseline LOC 4 per family. Neurologically intact. Hold on all sedating medications. Reorientation, check UA with C&S. Avoid sedating medications. Consider head CT if mentation does not improve. (3) Diabetes mellitus Current Visit: No Status: Acute Assessment and plan: per hx. Hgb A1c 7.4%. Cont home long-acting insulin. SSI. Monitor blood sugar and titrate PRN Qualifiers: Diabetes mellitus type: type 2 Diabetes mellitus correction insulin use: with correction use Diabetes mellitus complication status: without complication Qualified Code(s): E11.9 - Type 2 diabetes mellitus without complications; Z79.4 - halfway (current) use of insulin (4) HTN (hypertension) Current Visit: Yes Status: Acute Assessment and plan: new dx. Not on BP medications at home. BP uncontrolled. Add amlodipine. Monitor BP and titrate PRN Qualifiers: Hypertension type: unspecified Qualified Code(s): I10 - Essential (primary ) hypertension (5) Hyperlipidemia Current Visit: Yes Status: Acute Assessment and plan: LDL 132; add statin Qualifiers: Hyperlipidemia type: pure hypercholesterolemia Qualified Code(s): E78.00 - Pure hypercholesterolemia, unspecified; E78.0 - Pure hypercholesterolemia (6) Thrombocytopenia Current Visit: Yes Status: Acute Assessment and plan: PLTs 130; no active bleeding. Monitor closely while on heparin. Monitor repeat CBC. (7) DVT prophylaxis Current Visit: No Status: Acute Assessment and plan: heparin - Time Spent With Patient Total time spent is greater than 50% in coordination of care (as documented) at patient's floor/unit and/or counseling patient: - Subjective Interval history: Seen and examined at bedside; patient is new to me. Information obtained from chart review and family at bedside as patient is confused. Daughter reports patient was complaining of nausea yesterday and was in route to urgent care when she had acute onset of chest pain that radiated to right arm. Daughter says right arm became completely numb. Episode lasted approximately 15 minutes. Patient is alert to self and place only. Per RN she was alert and oriented 4 prior to receiving Ativan which was given for anxiety since she could complete stress test. Family at bedside and confirmed baseline mentation is LOC 4. Patient is visibly upset and tearful. Says she wants to go home but she is agreeable to stay for stress test. No chest pain or shortness of breath at time of my exam. - Constitutional Vitals: Temp Pulse Resp BP Pulse Ox 97.6 F 76 22 155/75 100 03/09/18 07:24 03/09/18 07:24 03/09/18 07:24 03/09/18 07:24 03/09/18 07:24 General appearance: Present: cooperative, A&O X 2, mild distress, answers questions appropriately - Head Head exam: Present: atraumatic, normocephalic - Eye Eye exam: Present: PERRL, conjuntiva pink, sclera anicteric Pupils: Present: PERRL - Neck Neck exam general surgery: Present: supple, trachea midline. Absent: lymphadenopathy - Respiratory Respiratory exam: Present: CTAB. Absent: accessory muscle use, rales, rhonchi, wheezes - Cardiovascular Cardiovascular exam: Present: RRR, +S1, +S2. Absent: diastolic murmur, gallop, rubs, systolic murmur - GI/Abdominal GI/Abdominal exam: Present: normal bowel sounds, soft, no peritoneal signs. Absent: distended, tenderness - Extremities Exam Extremities exam: Present: warm, radial pulses palpable and symmetrical. Absent : calf tenderness, cyanotic, pedal edema - Neurological Exam Neurological exam: Present: CN II-XII intact, no focal deficits. Absent: pronater drift, facial droop, speech deficit - Skin Skin exam: Present: dry, intact Internal Medicine: Result - Labs CBC & Chem 7: 03/09/18 04:44 03/09/18 04:44 Labs: Short CBC 03/09/18 Range/Units 04:44 WBC 4.9 (4.3-11.1) K/mcL Hgb 13.2 (11.5-15.4) g/dL Hct 37.8 (35.3-44.9) % Plt Count 130 L (140-400) K/mcL Neutrophils # 3.0 (1.6-8.9) K/mcL BMP 03/09/18 04:44 Sodium 140 Potassium 4.7 Chloride 108 H Carbon Dioxide 20 L BUN 22 Creatinine 0.99 Glucose 163 H Calcium 9.2 Cardiac Enzymes 03/08/18 03/09/18 03/09/18 Range/Units 17:49 00:48 04:44 Troponin I < 0.03 < 0.03 < 0.03 (< 0.04) ng/mL - ABG Interpretation ABG results: PT/INR, D-dimer PT 10.2 Seconds (9.4-12.1) 03/08/18 11:40 Consult Discharge Plan - Plan Referrals: NONE,PCP [Primary Care Provider] -
[2018-03-09 13:29] LABS: Bilirubin,Urine Negative (Negative); Blood,Urine Small (Negative); Clarity,Urine Clear (Clear); Color,Urine Yellow (Yellow); Glucose,Urine (UA) Normal (Normal); Ketones,Urine Trace mg/dL (Negative); Leukocyte Esterase,Urine Large (Negative); Nitrite,Urine Negative (Negative); PH,Urine 6.5 pH Units (5.0-8.0); Protein,Urine 30 mg/dL (Neg-Trace); Urobilinogen,Urine Normal (Normal)
[2018-03-09] MEDS: Aspirin 81 MG TAB.CHEW PO SCH (13:32)
[2018-03-09] MEDS: amLODIPine 5 MG TABLET PO SCH (13:32)
[2018-03-09 13:51] LABS: RBC,Urine 0-3 per hpf (0-3); WBC,Urine TNTC per hpf (0-3)
[2018-03-09 13:52] LABS: Bacteria,Urine Many per hpf (None-Few); Squamous Epithelial Cell,Urine Many per lpf (None-Few)
[2018-03-10] MEDS: *HR* Heparin 5,000 UNIT/ML VIAL SQ SCH (05:55)
[2018-03-10] MEDS ORDERED: Regadenoson 0.4 MG/5 ML SYRINGE IVP ONE ×2 (06:29→06:33)
[2018-03-10] MEDS: Insulin LISPRO 300 UNITS/3 ML VIAL SQ SCH ×2 (10:11→13:52)
[2018-03-10] MEDS: Insulin DETEMIR 100 UNIT/ML X5UNITS SQ SCH (13:43)
[2018-03-10] MEDS: amLODIPine 5 MG TABLET PO SCH (13:52)
[2018-03-10] MEDS: Aspirin 81 MG TAB.CHEW PO SCH (13:52)
[2018-03-10 15:30] VITALS: BP 114/71
--- NOTE | 2018-03-10 16:08 | Discharge Summary ---
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 Diabetes mellitus complication status: without complication Qualified Code(s): E11.9 - Type 2 diabetes mellitus without complications; Z79.4 - custodial (current) use of insulin (3) HTN (hypertension) Priority: Secondary Status: Acute Qualifiers: Hypertension type: unspecified Qualified Code(s): I10 - Essential (primary ) hypertension (4) Acute encephalopathy Priority: Secondary Status: Resolved (5) Hyperlipidemia Priority: Secondary Status: Acute Qualifiers: Hyperlipidemia type: pure hypercholesterolemia Qualified Code(s): E78.00 - Pure hypercholesterolemia, unspecified; E78.0 - Pure hypercholesterolemia (6) Thrombocytopenia Priority: Secondary Status: Acute (7) DVT prophylaxis Priority: Secondary Status: Acute Hospital course: Ms. Oliver is a 72 year old female who presented for intermittent chest pain concerning for acute coronary syndrome. Patient underwent ACS rule out. Noted to have nonspecific ST changes, troponins normal, stress test without signs of ischemia or perfusion defect. She was found to have hyperlipidemia. Given her cardiac risk factors she will be sent home on aspirin, statin. Additionally, during hospital course was found to be hypertensive. She was started on 10 mg of Norvasc with improvement in blood pressure. She will be discharged home on Norvasc as well. No pending studies. Acute coronary syndrome has been ruled out. Instructed to return to the ED should she begin to experience chest pain. I believe that the patient's presenting symptoms were caused by anxiety. Throughout the stay she has appeared anxious at times. I believe she would benefit from a anxiolytic. She been instructed to follow-up with PCP within a week. She is to discuss starting anxiolytic with PCP at this time. Discharge discussed with: patient, family, nurse - Time Spent with Patient Total time spent providing and/or coordinating discharge services: Less than 30 minutes - Discharge Medications Home Medications: Insulin DETEMIR [Levemir] 4 unit SQ BID 03/08/18 [History] Aspirin 81 mg PO DAILY 30 Days #30 tab.chew 03/10/18 [Rx] Atorvastatin [Lipitor] 10 mg PO HS 30 Days #30 tablet 03/10/18 [Rx] amLODIPine [Norvasc] 10 mg PO DAILY 30 Days #60 tablet 03/10/18 [Rx] Allergies/Adverse Reactions: 3 Allergy/AdvReac Type Severity Reaction Status Date / Time codeine Allergy Difficulty Verified 03/08/18 12:59 Swallowing morphine Allergy Difficulty Verified 03/08/18 12:59 Swallowing Date of admission: 03/08/18 12:57 Primary care physician: Luigi Lindo MD Consults: 03/09/18 08:21 Consult to Traffic Reporter [CONS] Routine Reason for SW Consult: Would like to set up advanced directives 03/10/18 08:26 Consult to Nurse Navigator [CONS] Routine Comment: Discharging clinician: Nilesh Rodríguez Anticipated date of discharge: 03/10/18 - Constitutional Vitals: Temp Pulse Resp BP Pulse Ox 97.7 F 68 16 114/71 97 03/10/18 15:29 03/10/18 15:29 03/10/18 15:29 03/10/18 15:29 03/10/18 15:29 General appearance: Present: cooperative, A&O X 2, mild distress, answers questions appropriately - Head Head exam: Present: atraumatic, normocephalic - Eye Eye exam: Present: PERRL, conjuntiva pink, sclera anicteric Pupils: Present: PERRL - Neck Neck exam general surgery: Present: supple, trachea midline. Absent: lymphadenopathy - Respiratory Respiratory exam: Present: CTAB. Absent: accessory muscle use, rales, rhonchi, wheezes - Cardiovascular Cardiovascular exam: Present: RRR, +S1, +S2. Absent: diastolic murmur, gallop, rubs, systolic murmur - GI/Abdominal GI/Abdominal exam: Present: normal bowel sounds, soft, no peritoneal signs. Absent: distended, tenderness - Extremities Exam Extremities exam: Present: warm, radial pulses palpable and symmetrical. Absent : calf tenderness, cyanotic, pedal edema - Neurological Exam Neurological exam: Present: CN II-XII intact, oriented X3, no focal deficits. Absent: pronater drift, facial droop, speech deficit - Skin Skin exam: Present: dry, intact - Patient Status Disposition: Home, Self-Care Condition: Good Functional capacity at discharge: independent ambulation Overall status at discharge: patient is back to baseline - Discharge Instructions Instructions: Chronic Hypertension (DC), Diabetes Mellitus Type 2 in Adults (DC ), Urinary Tract Infection in Women (DC) Follow Up With: NONE,PCP [Non-Partnered Physician] - - Diet and Activity Activity: resume usual activities as tolerated Diet: diabetic diet, low fat, low cholesterol
== END 2018-03-10 16:47 | disposition home or self-care (01) ==
LOC: 3BNU 11:25 → EMEROO 11:25 → 3BNU 13:24
PROVIDERS: ADMIT Internal Medicine; ATTEND Internal Medicine

== ENCOUNTER 2018-08-31 07:53 | Observation (INO) ==
[2018-08-31 08:30] LABS: Basophils % 0.6 %; Eosinophils # 0.2 K/mcL (0.0-0.6); Eosinophils % 3.4 %; Hemoglobin 12.6 g/dL (11.5-15.4); Immature Granulocytes % 0.4 % (0-4); Lymphocytes # 1.2 K/mcL (0.6-4.6); Lymphocytes % 25.6 %; Mean Corpuscular HGB Conc 34.1 g/dL (31.6-35.5); Mean Corpuscular Hemoglobin 30.8 pg (28.0-33.3); Mean Corpuscular Volume 90.5 fL (83.0-100.0); Mean Platelet Volume 10.2 fL (9.4-12.4); Monocytes # 0.4 K/mcL (0.0-1.3); Monocytes % 8.3 %; Neutrophils # 2.9 K/mcL (1.6-8.9); Platelet Count 142 K/mcL (140-400); Red Blood Count 4.09 M/mcL (3.82-4.97); Red Cell Distribution Width 11.7 % (11.5-14.5); Segmented Neutrophils % 61.7 %
--- NOTE | 2018-08-31 08:35 | Emergency Department Note ---
Disposition Clinical Impression: Acute kidney injury, Nausea, Dehydration Disposition: Admitted As Inpatient Condition: Good General Adult HPI - General Chief complaint: ED Abdominal Pain Stated complaint: Abdominal pain Time Seen by Provider: 08/31/18 07:54 Source: patient, family Mode of arrival: private vehicle Limitations: no limitations Nursing Notes Reviewed: Yes Vital Signs Reviewed: Yes - History of Present Illness HPI Narrative: Patient is a 72-year-old female with past medical history including hy pertension, diabetes mellitus, recent cerebrovascular accident couple months ago, with residual right lower extremity numbness and mild right facial droop presenting with chief complaint of nausea. She complains of bilateral chest pain 4 days ago that she describes as sharp associated with some shortness of breath that has since resolved on its own. She denies history of myocardial infarction. Since yesterday evening, the patient complains of significant nausea, stating she "feels sick to her stomach". She has not vomited. States her last bowel movement was a week ago. She does have difficulties with constipation. She states the nausea was exacerbated by eating yesterday and she has not eaten anything today. She does have a history of intermittent nausea and vomiting since her stroke. Denies fevers. She is currently being treated for a urinary tract infection with Bactrim. He denies any abdominal pain. Denies chest pain, shortness of breath today. Presenting for further kyle luation. Patient also denies any new weakness, slurred speech, new numbness. Pain Scale: 8 - Related Data Home Medications Medication Instructions Recorded Confirmed Insulin DETEMIR [Levemir] 4 unit SQ BID 03/08/18 03/08/18 Previous Rx's Medication Instructions Recorded Aspirin 81 mg PO DAILY 30 Days #30 tab.chew 03/10/18 Atorvastatin [Lipitor] 10 mg PO HS 30 Days #30 tablet 03/10/18 amLODIPine [Norvasc] 10 mg PO DAILY 30 Days #60 tablet 03/10/18 Allergies Allergy/AdvReac Type Severity Reaction Status Date / Time codeine Allergy Difficulty Verified 03/08/18 12:59 Swallowing morphine Allergy Difficulty Verified 03/08/18 12:59 Swallowing All systems ED: reviewed and negative except as stated. Review of Systems: As Per HPI Constitutional: Denies: fever, chills Eyes: Denies: vision change ENT ED: Denies: ear pain, throat pain, dysphagia Cardiovascular: Reports: chest pain. Denies: palpitations Respiratory: Reports: dyspnea. Denies: cough Gastrointestinal: Reports: nausea, constipation. Denies: abdominal pain, vomiting, diarrhea Genitourinary: Reports: dysuria Neurological: Denies: headache, weakness Past Medical History - Past Medical History Attestation: Yes The following information was validated with the patient. Source: patient Medical history: Reports: diabetes, hyperlipidemia Surgical history: Reports: appendectomy, cholecystectomy Psychiatric history: Reports: no psych history - Social History Smoking Status: Never smoker Smokeless Tobacco Status: No Alcohol use: Reports: rarely Drug use: Reports: none Physical Exam - General Limitations: no limitations General appearance: alert, in no apparent distress - Head Head exam: atraumatic, normocephalic, normal inspection - Eye Eye exam: Present: normal appearance, PERRL, EOMI - ENT ENT exam: normal exam, normal oropharynx, mucous membranes moist - Neck Neck exam: Present: full ROM - Chest Chest inspection: Present: normal inspection, symmetric chest wall rise - Respiratory Respiratory exam: Present: normal lung sounds bilaterally. Absent: respiratory distress, wheezes - Cardiovascular Cardiovascular exam: Present: regular rate, normal rhythm, normal heart sounds - Abdominal Exam Abdominal exam: Present: soft, Non-Tender. Absent: tenderness, distention, guarding, rebound, rigidity - Extremities Exam Extremities exam: Present: normal inspection, full ROM, normal capillary refill. Absent: tenderness, pedal edema - Neurological Exam Neurological exam: Present: alert, oriented X3, CN II-XII intact, normal gait. Absent: motor sensory deficit - Expanded Neurological Exam Speech: Present: fluid speech Cerebellar function: finger to nose: Normal Cerebellar function: normal gait Motor strength - LUE: 5/5 Motor strength - RUE: 5/5 Motor strength - LLE: 5/5 Motor strength - RLE: 5/5 Upper motor neuron exam: jose neglect: Absent bilaterally, pronator drift: Absent bilaterally Sensory exam upper extremity: light touch: Normal Sensory exam lower extremity: light touch: Normal - Psychiatric Psychiatric exam: Present: normal affect, normal mood - Skin Skin exam: Present: warm, dry, intact, normal color. Absent: diaphoresis, pallor Course Vital Signs Temperature 98.2 F 08/31/18 07:57 Pulse Rate 71 08/31/18 07:57 Respiratory Rate 18 01/17/19 07:57 Blood Pressure 147/73 01/17/19 07:57 O2 Sat by Pulse Oximetry 97 08/31/18 07:57 Temperature 98.2 F 08/31/18 09:48 Pulse Rate 71 08/31/18 09:48 Respiratory Rate 16 08/31/18 09:48 Blood Pressure 148/72 08/31/18 09:48 O2 Sat by Pulse Oximetry 100 08/31/18 09:48 Oxygen Delivery Oxygen Delivery Room Air Medical Decision Making - [facility] Narrative Medical decision making narrative: Patient presenting with significant nausea since yesterday. She did also have an episode of chest pain and shortness of breath 4 days ago. Concern for possible ACS. It is low on clinicaly suspicion but needs to be ruled out. We will obtain EKG and troponin. Will also obtain chest x-ray. Also further evaluate nausea and obtain LFTs, lipase, urinalysis. She is currently on Bactrim for a urinary tract infection. Vitals are stable. Patient's story has been changing and she states she feels like her numbness is indeed worsening in her right lower extremity so we will also obtain CT head without contrast to rule out any intracranial abnormality. On questioning the family, family states patient is acting appropriately at her baseline and they do not know any new neurologic symptoms. They state at baseline, the patient does have a right- sided facial droop and at times drinks her right lower extremity secondary to the prior stroke. Zofran for nausea. 09:37 Patient does have acute kidney injury. She likely is dehydrated secondary to significant nausea and decreased by mouth intake. She also has been on Bactrim for 3 days which could be a component of acute kidney injury. She will require admission for this as well as ACS rule out. Urinalysis is still pending at this time his urine is uncollected. Troponin is normal, no leukocytosis. No electrolyte abnormality. CT imaging shows remote left pontine lucinar infatrct. Otherwise no acute intracranial abnormality. 10:30 Hospitalist consulted for admission. Discussed with them at 11:00 and they accept. - Medical Records Medical records reviewed: Yes I reviewed the patient's medical records. - Lab Data Lab results reviewed: Yes I reviewed the patient's lab results. Result diagrams: 08/31/18 08:13 08/31/18 08:13 Lab Results 08/31/18 08/31/18 08/31/18 Range/Units 08:13 08:13 08:13 WBC 4.7 (4.3-11.1) K/mcL RBC 4.09 (3.82-4.97) M/mcL Hgb 12.6 (11.5-15.4) g/dL Hct 37.0 (35.3-44.9) % MCV 90.5 (83.0-100.0) fL MCH 30.8 (28.0-33.3) pg MCHC 34.1 (31.6-35.5) g/dL RDW 11.7 (11.5-14.5) % Plt Count 142 (140-400) K/mcL MPV 10.2 (9.4-12.4) fL Immature Gran % 0.4 (0-4) % Seg Neutrophils % 61.7 % Lymphocytes % 25.6 % Monocytes % 8.3 % Eosinophils % 3.4 % Basophils % 0.6 % Neutrophils # 2.9 (1.6-8.9) K/mcL Lymphocytes # 1.2 (0.6-4.6) K/mcL Monocytes # 0.4 (0.0-1.3) K/mcL Eosinophils # 0.2 (0.0-0.6) K/mcL Basophils # 0.0 (0.0-0.2) K/mcL PT 10.9 (9.4-12.1) Seconds INR 1.0 Sodium 137 (136-145) mEq/L Potassium 4.6 (3.5-5.1) mEq/L Chloride 106 (98-107) mEq/L Carbon Dioxide 25 (23-29) mEq/L BUN 30 H (8-23) mg/dL Creatinine 1.58 H (0.60-1.20) mg/dL Est GFR ( Amer) 39 L (> 60) Est GFR (Non-Af Amer) 32 L (> 60) BUN/Creatinine Ratio 19 (6-26) Glucose 112 H (70-105) mg/dL Calculated Osmolality 291 (280-300) Calcium 9.6 (8.6-10.3) mg/dL Total Bilirubin 0.3 (0.3-1.0) mg/dL Direct Bilirubin 0.1 (0.0-0.2) mg/dL Indirect Bilirubin 0.2 (0.0-1.2) mg/dL AST 18 (13-39) Units/L ALT 11 (7-52) Units/L Alkaline Phosphatase 68 (34-104) Units/L Troponin I < 0.03 (< 0.04) ng/mL Serum Total Protein 6.6 (6.4-8.9) g/dL Albumin 3.9 (3.5-5.7) g/dL Globulin 2.7 (2.4-3.5) g/dL Albumin/Globulin Ratio 1.4 (1.1-2.2) Lipase 19 (11-82) Units/L Urine Color (Yellow) Urine Clarity (Clear) Urine pH (5.0-8.0) pH Units Ur Specific [place] (1.010-1.025) Urine Protein (Neg-Trace) mg/dL Urine Glucose (UA) (Normal) mg/dL Urine Ketones (Negative) mg/dL Urine Blood (Negative) Urine Nitrite (Negative) Urine Bilirubin (Negative) Urine Urobilinogen (Normal) mg/dL Ur Leukocyte Esterase (Negative) Urine Microscopic RBC (0-3) per hpf Urine Microscopic WBC (0-3) per hpf Ur Squamous Epith Cells (None-Few) per lpf Urine Bacteria (None-Few) per hpf Hyaline Casts (None-Few) per lpf Ur Culture Indicated? (NO) 08/31/18 Range/Units 09:34 WBC (4.3-11.1) K/mcL RBC (3.82-4.97) M/mcL Hgb (11.5-15.4) g/dL Hct (35.3-44.9) % MCV (83.0-100.0) fL MCH (28.0-33.3) pg MCHC (31.6-35.5) g/dL RDW (11.5-14.5) % Plt Count (140-400) K/mcL MPV (9.4-12.4) fL Immature Gran % (0-4) % Seg Neutrophils % % Lymphocytes % % Monocytes % % Eosinophils % % Basophils % % Neutrophils # (1.6-8.9) K/mcL Lymphocytes # (0.6-4.6) K/mcL Monocytes # (0.0-1.3) K/mcL Eosinophils # (0.0-0.6) K/mcL Basophils # (0.0-0.2) K/mcL PT (9.4-12.1) Seconds INR Sodium (136-145) mEq/L Potassium (3.5-5.1) mEq/L Chloride (98-107) mEq/L Carbon Dioxide (23-29) mEq/L BUN (8-23) mg/dL Creatinine (0.60-1.20) mg/dL Est GFR ( Amer) (> 60) Est GFR (Non-Af Amer) (> 60) BUN/Creatinine Ratio (6-26) Glucose (70-105) mg/dL Calculated Osmolality (280-300) Calcium (8.6-10.3) mg/dL Total Bilirubin (0.3-1.0) mg/dL Direct Bilirubin (0.0-0.2) mg/dL Indirect Bilirubin (0.0-1.2) mg/dL AST (13-39) Units/L ALT (7-52) Units/L Alkaline Phosphatase (34-104) Units/L Troponin I (< 0.04) ng/mL Serum Total Protein (6.4-8.9) g/dL Albumin (3.5-5.7) g/dL Globulin (2.4-3.5) g/dL Albumin/Globulin Ratio (1.1-2.2) Lipase (11-82) Units/L Urine Color Yellow (Yellow) Urine Clarity Clear (Clear) Urine pH 6.0 (5.0-8.0) pH Units Ur Specific [place] 1.010 (1.010-1.025) Urine Protein Negative (Neg-Trace) mg/dL Urine Glucose (UA) Normal (Normal) mg/dL Urine Ketones Negative (Negative) mg/dL Urine Blood Negative (Negative) Urine Nitrite Negative (Negative) Urine Bilirubin Negative (Negative) Urine Urobilinogen Normal (Normal) mg/dL Ur Leukocyte Esterase Moderate H (Negative) Urine Microscopic RBC 0-3 (0-3) per hpf Urine Microscopic WBC 15-30 H (0-3) per hpf Ur Squamous Epith Cells Many H (None-Few) per lpf Urine Bacteria None Seen (None-Few) per hpf Hyaline Casts None Seen (None-Few) per lpf Ur Culture Indicated? NO. A (NO) - Radiology Data Radiology results reviewed: Yes I reviewed the patient's radiology results. Chest X-Ray 01/17/19 08:17 IMPRESSION: No active cardiopulmonary disease D/ / Glenn Mejia MD / Glenn Mejia MD Interpreting Provider: Glenn Mejia MD Head CT 08/31/18 08:28 IMPRESSION: No acute intracranial abnormality. Remote left pontine lacunar infarction. Chronic small vessel disease. D/ / Sourav Taylor MD / Sourav Taylor MD Interpreting Provider: Sourav Taylor MD - EKG Data EKG #1 EKG attestation: Yes I reviewed and interpreted this EKG. EKG results narrative: EKG obtained today at 8:19 AM shows sinus rhythm with heart rate 69. NM int erval 163. QRS duration 92. QTC 461. There is no ST elevation or depression noted. Compared to prior EKG on 09/03/2017 which is unchanged. Attestation Statement - Attestation Attestation: I, Daniel Sinha DO, examined this patient [id number] and my medical decision-making was reviewed with Dr. Marcy Morales , Resident Physician. I agree with the documented findings, disposition and treatment plan as described except to the extent set forth below. Please see my progress notes for details. Heart Score - Score History: Slightly Suspicious EKG: Normal Age: Greater than 65 Risk Factors: Equal/Greater than 3 risk factor or history of atherosclerotic disease Troponin: Less than normal limit HEART Score Total: 4
[2018-08-31 08:49] LABS: Troponin I < 0.03 ng/mL (< 0.04)
[2018-08-31 08:50] LABS: Alanine Aminotransferase 11 Units/L (7-52); Albumin 3.9 g/dL (3.5-5.7); Albumin/Globulin Ratio 1.4 (1.1-2.2); Alkaline Phosphatase 68 Units/L (34-104); Aspartate Amino Transferase 18 Units/L (13-39); BUN/Creatinine Ratio 19 (6-26); Bilirubin,Direct 0.1 mg/dL (0.0-0.2); Bilirubin,Indirect 0.2 mg/dL (0.0-1.2); Bilirubin,Total 0.3 mg/dL (0.3-1.0); Blood Urea Nitrogen 30 mg/dL (8-23); Calcium 9.6 mg/dL (8.6-10.3); Carbon Dioxide 25 mEq/L (23-29); Chloride 106 mEq/L (98-107); Globulin 2.7 g/dL (2.4-3.5); Glucose 112 mg/dL (70-105); Lipase 19 Units/L (11-82); Osmolality,Calculated 291 (280-300); Potassium 4.6 mEq/L (3.5-5.1); Sodium 137 mEq/L (136-145); Total Protein 6.6 g/dL (6.4-8.9); eGFR For Non-African Americans 32 (> 60)
--- NOTE | 2018-08-31 08:51 | Emergency Department Note ---
Disposition Clinical Impression: Acute kidney injury, Nausea, Dehydration Disposition: Admitted As Inpatient Condition: Good Time of Disposition: 11:21 General Adult HPI - General Chief complaint: ED Abdominal Pain Stated complaint: Abdominal pain Time Seen by Provider: 08/31/18 07:54 - History of Present Illness Pain Scale: 8 - Related Data Home Medications Medication Instructions Recorded Confirmed Insulin DETEMIR [Levemir] 4 unit SQ BID 03/08/18 03/08/18 Previous Rx's Medication Instructions Recorded Aspirin 81 mg PO DAILY 30 Days #30 tab.chew 03/10/18 Atorvastatin [Lipitor] 10 mg PO HS 30 Days #30 tablet 03/10/18 amLODIPine [Norvasc] 10 mg PO DAILY 30 Days #60 tablet 03/10/18 Allergies Allergy/AdvReac Type Severity Reaction Status Date / Time codeine Allergy Difficulty Verified 03/08/18 12:59 Swallowing morphine Allergy Difficulty Verified 03/08/18 12:59 Swallowing Past Medical History - Past Medical History Medical history: Reports: diabetes, hyperlipidemia Surgical history: Reports: appendectomy, cholecystectomy Psychiatric history: Reports: no psych history - Social History Smoking Status: Never smoker Smokeless Tobacco Status: No Alcohol use: Reports: rarely Drug use: Reports: none Course Vital Signs Temperature 98.2 F 08/31/18 07:57 Pulse Rate 71 08/31/18 07:57 Respiratory Rate 18 08/31/18 07:57 Blood Pressure 147/73 08/31/18 07:57 O2 Sat by Pulse Oximetry 97 08/31/18 07:57 Temperature 98.2 F 08/31/18 09:48 Pulse Rate 71 08/31/18 09:48 Respiratory Rate 16 08/31/18 09:48 Blood Pressure 148/72 08/31/18 09:48 O2 Sat by Pulse Oximetry 100 08/31/18 09:48 Oxygen Delivery Oxygen Delivery Room Air Medical Decision Making - Lab Data Result diagrams: 08/31/18 08:13 08/31/18 08:13 Lab Results 08/31/18 08/31/18 08/31/18 Range/Units 08:13 08:13 08:13 WBC 4.7 (4.3-11.1) K/mcL RBC 4.09 (3.82-4.97) M/mcL Hgb 12.6 (11.5-15.4) g/dL Hct 37.0 (35.3-44.9) % MCV 90.5 (83.0-100.0) fL MCH 30.8 (28.0-33.3) pg MCHC 34.1 (31.6-35.5) g/dL RDW 11.7 (11.5-14.5) % Plt Count 142 (140-400) K/mcL MPV 10.2 (9.4-12.4) fL Immature Gran % 0.4 (0-4) % Seg Neutrophils % 61.7 % Lymphocytes % 25.6 % Monocytes % 8.3 % Eosinophils % 3.4 % Basophils % 0.6 % Neutrophils # 2.9 (1.6-8.9) K/mcL Lymphocytes # 1.2 (0.6-4.6) K/mcL Monocytes # 0.4 (0.0-1.3) K/mcL Eosinophils # 0.2 (0.0-0.6) K/mcL Basophils # 0.0 (0.0-0.2) K/mcL PT 10.9 (9.4-12.1) Seconds INR 1.0 Sodium 137 (136-145) mEq/L Potassium 4.6 (3.5-5.1) mEq/L Chloride 106 (98-107) mEq/L Carbon Dioxide 25 (23-29) mEq/L BUN 30 H (8-23) mg/dL Creatinine 1.58 H (0.60-1.20) mg/dL Est GFR ( Amer) 39 L (> 60) Est GFR (Non-Af Amer) 32 L (> 60) BUN/Creatinine Ratio 19 (6-26) Glucose 112 H (70-105) mg/dL Calculated Osmolality 291 (280-300) Calcium 9.6 (8.6-10.3) mg/dL Total Bilirubin 0.3 (0.3-1.0) mg/dL Direct Bilirubin 0.1 (0.0-0.2) mg/dL Indirect Bilirubin 0.2 (0.0-1.2) mg/dL AST 18 (13-39) Units/L ALT 11 (7-52) Units/L Alkaline Phosphatase 68 (34-104) Units/L Troponin I < 0.03 (< 0.04) ng/mL Serum Total Protein 6.6 (6.4-8.9) g/dL Albumin 3.9 (3.5-5.7) g/dL Globulin 2.7 (2.4-3.5) g/dL Albumin/Globulin Ratio 1.4 (1.1-2.2) Lipase 19 (11-82) Units/L Urine Color (Yellow) Urine Clarity (Clear) Urine pH (5.0-8.0) pH Units Ur Specific [place] (1.010-1.025) Urine Protein (Neg-Trace) mg/dL Urine Glucose (UA) (Normal) mg/dL Urine Ketones (Negative) mg/dL Urine Blood (Negative) Urine Nitrite (Negative) Urine Bilirubin (Negative) Urine Urobilinogen (Normal) mg/dL Ur Leukocyte Esterase (Negative) Urine Microscopic RBC (0-3) per hpf Urine Microscopic WBC (0-3) per hpf Ur Squamous Epith Cells (None-Few) per lpf Urine Bacteria (None-Few) per hpf Hyaline Casts (None-Few) per lpf Ur Culture Indicated? (NO) 08/31/18 Range/Units 09:34 WBC (4.3-11.1) K/mcL RBC (3.82-4.97) M/mcL Hgb (11.5-15.4) g/dL Hct (35.3-44.9) % MCV (83.0-100.0) fL MCH (28.0-33.3) pg MCHC (31.6-35.5) g/dL RDW (11.5-14.5) % Plt Count (140-400) K/mcL MPV (9.4-12.4) fL Immature Gran % (0-4) % Seg Neutrophils % % Lymphocytes % % Monocytes % % Eosinophils % % Basophils % % Neutrophils # (1.6-8.9) K/mcL Lymphocytes # (0.6-4.6) K/mcL Monocytes # (0.0-1.3) K/mcL Eosinophils # (0.0-0.6) K/mcL Basophils # (0.0-0.2) K/mcL PT (9.4-12.1) Seconds INR Sodium (136-145) mEq/L Potassium (3.5-5.1) mEq/L Chloride (98-107) mEq/L Carbon Dioxide (23-29) mEq/L BUN (8-23) mg/dL Creatinine (0.60-1.20) mg/dL Est GFR ( Amer) (> 60) Est GFR (Non-Af Amer) (> 60) BUN/Creatinine Ratio (6-26) Glucose (70-105) mg/dL Calculated Osmolality (280-300) Calcium (8.6-10.3) mg/dL Total Bilirubin (0.3-1.0) mg/dL Direct Bilirubin (0.0-0.2) mg/dL Indirect Bilirubin (0.0-1.2) mg/dL AST (13-39) Units/L ALT (7-52) Units/L Alkaline Phosphatase (34-104) Units/L Troponin I (< 0.04) ng/mL Serum Total Protein (6.4-8.9) g/dL Albumin (3.5-5.7) g/dL Globulin (2.4-3.5) g/dL Albumin/Globulin Ratio (1.1-2.2) Lipase (11-82) Units/L Urine Color Yellow (Yellow) Urine Clarity Clear (Clear) Urine pH 6.0 (5.0-8.0) pH Units Ur Specific [place] 1.010 (1.010-1.025) Urine Protein Negative (Neg-Trace) mg/dL Urine Glucose (UA) Normal (Normal) mg/dL Urine Ketones Negative (Negative) mg/dL Urine Blood Negative (Negative) Urine Nitrite Negative (Negative) Urine Bilirubin Negative (Negative) Urine Urobilinogen Normal (Normal) mg/dL Ur Leukocyte Esterase Moderate H (Negative) Urine Microscopic RBC 0-3 (0-3) per hpf Urine Microscopic WBC 15-30 H (0-3) per hpf Ur Squamous Epith Cells Many H (None-Few) per lpf Urine Bacteria None Seen (None-Few) per hpf Hyaline Casts None Seen (None-Few) per lpf Ur Culture Indicated? NO. A (NO) Attestation Statement - Attestation Attestation: I, Daniel Sinha DO, examined this patient [id number] and my medical decision-making was reviewed with Dr. Marcy Morales , Resident Physician. I agree with the documented findings, disposition and treatment plan as described except to the extent set forth below. Please see my progress notes for details. 72-year-old female presents emergency room for evaluation of multiple issues and complaints. Patient is a previous history of stroke several months ago. On arrival here she is describing generalized nausea with intermittent episodes of vomiting. Intermittent chest discomfort or tightness. Denies any fevers or chills. She is chronically a nausea since her stroke. She also has some deficit in her extremities or weakness according to her. She denies any new symptoms or issues this time outside of the nausea. Denies any falls trauma or injury. Currently denying headache or vision change. She has no complaint of shortness of breath or active chest pain at this time in the emergency department. Her main complaint and only describes symptom at this time is nausea. Vital signs otherwise stable. Patient is alert she is oriented she follows commands appropriately. Pupils are equal round reactive to light. Extraocular muscles are intact. Oropharynx is patent. Trachea is midline. Uvula appears to be symmetric and centrally oriented. No tracheal deviation noted. No stridor no trismus. Lungs are clear to auscultation. Heart is regular. Abdomen is soft with no guarding rigidity or peritoneal symptoms on at this time. Neurologic evaluation is unremarkable. Cranial nerves appear to be intact. Mild left-sided facial droop was noted but the family says this is chronic in nature and is not acute on the presentation here today. Patient's only known medical issue includes hypertension. Patient takes aspirin at home for the stroke evaluation previously. On arrival here the disposition is undifferentiated at this time. Evaluation for stroke related issues as well as cardiac and abdominal related presentation will be addressed at this time. CT imaging the head chest x-ray CBC chemistry liver function testing lipase and troponin will be collected for evaluation. Urinalysis will be resulted as well. Disposition pending the full workup and treatment course. See detailed documentation the physical exam, medical intervention, medical decision-making and disposition in the resident physician's note. No critical care applied the patient's treatment course at this time. 0915 Patient has mild acute kidney injury. Fluid hydration will be provided at this time. Troponin is negative. Patient has had these chest tightness symptoms as well as the nausea for several days to the clinical suspicion of acute coronary syndrome with ischemia is low on the differential at this point but does need to be ruled out. CT imaging the head does not show any acute changes secondary to the previous stroke at this time. Patient will be admitted for fluid hydration and observation. No other acute concerns or issues noted at this time. 1100 Patient was discussed with the hospitalist Dr. Blankenship. No other recommendations or concerns are noted at this time. Symptomatic control and continuation of management will be established. Patient does not have any acute cardiac or neurologic symptoms at this time. Patient will be monitoring emergency room until admission process is completed
[2018-08-31 08:52] LABS: Prothrombin Time 10.9 Seconds (9.4-12.1)
[2018-08-31] MEDS ORDERED: 0.9 % Sodium Chloride 1,000 ML IVC ONE (09:35)
[2018-08-31] MEDS ORDERED: Ondansetron ODT 4 MG TAB.RAPDIS SL ONE (09:36)
[2018-08-31 09:56] LABS: Bilirubin,Urine Negative (Negative); Blood,Urine Negative (Negative); Clarity,Urine Clear (Clear); Color,Urine Yellow (Yellow); Glucose,Urine (UA) Normal (Normal); Ketones,Urine Negative (Negative); Leukocyte Esterase,Urine Moderate (Negative); Nitrite,Urine Negative (Negative); Protein,Urine Negative (Neg-Trace); Urobilinogen,Urine Normal (Normal)
[2018-08-31 09:58] LABS: Bacteria,Urine None Seen per hpf (None-Few); Hyaline Casts,Urine None Seen per lpf (None-Few); RBC,Urine 0-3 per hpf (0-3); Squamous Epithelial Cell,Urine Many per lpf (None-Few); WBC,Urine 15-30 per hpf (0-3)
[2018-08-31] MEDS: 0.9 % Sodium Chloride 1,000 ML IVC SCH (14:18)
[2018-08-31] MEDS ORDERED: *HR* Dextrose 50 % in Water (Syg) 50 ML SYRINGE IVP PRN (15:21)
[2018-08-31] MEDS ORDERED: D5% in Water 1,000 ML IVC PRN (15:21)
[2018-08-31] MEDS ORDERED: Dextrose Gel 15 GM/37.5 ML TUBE PO PRN ×2 (15:21)
--- NOTE | 2018-08-31 15:31 | Electrocardiograph Report ---
[place] [address] Test Date: 2018-08-31 Pat Name: Mimi Oliver Department: EXAM2 Room: 3B14 Gender: F [employer]: : 1945 Requested By: Marcy Morales Order Number: [id number] Reading MD: Destinee Real Measurements Intervals [place] Rate: 69 P: 32 NC: 163 QRS: -27 QRSD: 92 T: 59 QT: 430 QTc: 461 Interpretive Statements Sinus rhythm Borderline left axis deviation Electronically Signed On 08-31-2018 15:29:18 EST by Destinee Real
[2018-08-31] MEDS ORDERED: Naloxone 0.4 MG/ML INJ IVP PRN (16:21)
[2018-08-31] MEDS ORDERED: Insulin LISPRO 300 UNITS/3 ML VIAL SQ SCH ×2 (16:30→21:00)
[2018-08-31] MEDS: Tobramycin Opth SOLN 5 ML BOTTLE BOTH EYES SCH ×2 (17:13→21:59)
--- NOTE | 2018-08-31 21:46 | Internal Med History&Physical ---
Date of Encounter: 09/01/18 Time of Encounter: 11:00 Internal Medicine - H&P: HPI Chief complaint: Dehydration Admitted From: Home History of present illness: Patient is a 72-year-old female with past medical history significant for diabetes and hyperlipidemia who presents to the ER on 08/31/18 due to dehydration. Patient is a poor historian but was brought into the hospital with concerns for dehydration in the ER found to have acute renal failure. IV fluids were started in the ER and patient was admitted to observation unit for 24 hour monitoring for acute renal failure secondary to dehydration. Past Med Surg Social Fam HX - Past Medical History Medical history: diabetes, hyperlipidemia Psychiatric history: no psych history - Past Surgical History Surgical History: appendectomy, cholecystectomy Additional surgical history: T&A - Social History Smoking Status: Never smoker Smokeless Tobacco Status: No Alcohol use: rarely Drug use: none - Family History Mother Living Status: Hx Family Cardiac Disorders: Yes Hx Family Endocrine Disorder: Yes Maternal Grandmother Living Status: Father History Unknown: Yes Living Status: Unknown Brother Hx Family Cancer: Yes (Lung, Mestatic) Sister Hx Family Cancer: Yes (Thyroid) Internal Medicine - H&P: Meds Aspirin 325 mg PO DAILY 08/31/18 [History] Atorvastatin [Lipitor] 40 mg PO DAILY 08/31/18 [History] Escitalopram Oxalate 5 mg PO DAILY 08/31/18 [History] Linagliptin [Tradjenta] 5 mg PO DAILY 08/31/18 [History] Losartan Potassium 25 mg PO DAILY 08/31/18 [History] Metformin HCl [Glucophage Xr] 1,000 mg PO QPM 08/31/18 [History] Sulfamethoxazole/Trimeth DS [Bactrim DS] 1 tab PO BID 08/31/18 [History] Tobramycin 1 drop BOTH EYES QID 08/31/18 [History] Allergy/AdvReac Type Severity Reaction Status Date / Time codeine Allergy Difficulty Verified 03/08/18 12:59 Swallowing morphine Allergy Difficulty Verified 03/08/18 12:59 Swallowing All Systems PM: A 10-system review of systems was performed and is negative for pertinent findings except as documented above in the HPI. - Constitutional Vitals: Temp Pulse Resp BP Pulse Ox 97.7 F 73 16 142/69 98 08/31/18 19:02 08/31/18 19:02 08/31/18 19:02 08/31/18 19:02 08/31/18 19:02 General appearance: Present: A&O X 3, no acute distress Exam: as above - Head Head exam: Present: normocephalic - Eye Eye exam: Present: normal appearance - Respiratory Respiratory exam: Present: CTAB. Absent: accessory muscle use, rales, rhonchi, wheezes - Cardiovascular Cardiovascular exam: Present: RRR, +S1, +S2. Absent: diastolic murmur, gallop, rubs, systolic murmur - GI/Abdominal GI/Abdominal exam: Present: normal bowel sounds, soft, no peritoneal signs. Absent: distended, tenderness - Extremities Exam Extremities exam: Absent: pedal edema - Neurological Exam Neurological exam: Present: oriented X3 - Psychiatric Psychiatric exam: Present: normal mood - Skin Skin exam: Present: normal color Internal Med - H&P Results - Labs CBC & Chem 7: 09/01/18 03:51 09/01/18 03:51 Labs: Short CBC 08/31/18 Range/Units 08:13 WBC 4.7 (4.3-11.1) K/mcL Hgb 12.6 (11.5-15.4) g/dL Hct 37.0 (35.3-44.9) % Plt Count 142 (140-400) K/mcL Neutrophils # 2.9 (1.6-8.9) K/mcL BMP 08/31/18 08:13 Sodium 137 Potassium 4.6 Chloride 106 Carbon Dioxide 25 BUN 30 H Creatinine 1.58 H Glucose 112 H Calcium 9.6 Cardiac Enzymes 08/31/18 Range/Units 08:13 Troponin I < 0.03 (< 0.04) ng/mL Liver Function 08/31/18 Range/Units 08:13 Total Bilirubin 0.3 (0.3-1.0) mg/dL Direct Bilirubin 0.1 (0.0-0.2) mg/dL AST 18 (13-39) Units/L ALT 11 (7-52) Units/L Alkaline Phosphatase 68 (34-104) Units/L Albumin 3.9 (3.5-5.7) g/dL Urine 08/31/18 Range/Units 09:34 Urine Color Yellow (Yellow) Urine Clarity Clear (Clear) Urine pH 6.0 (5.0-8.0) pH Units Ur Specific [place] 1.010 (1.010-1.025) Urine Protein Negative (Neg-Trace) mg/dL Urine Glucose (UA) Normal (Normal) mg/dL - Impressions ITS Impressions Chest X-Ray 08/31/18 08:17 IMPRESSION: No active cardiopulmonary disease D/ / Glenn Mejia MD / Glenn Mejia MD Interpreting Provider: Glenn Mejia MD Head CT 08/31/18 08:28 IMPRESSION: No acute intracranial abnormality. Remote left pontine lacunar infarction. Chronic small vessel disease. D/ / Sourav Taylor MD / Sourav Taylor MD Interpreting Provider: Sourav Taylor MD - Assessment and plan (1) Acute kidney injury Status: Acute Assessment and plan: Patient with an elevated creatinine on admission at 1.58 Continue IV fluids and reevaluate in the a.m. (2) Dehydration Status: Acute (3) Diabetes mellitus Status: Acute Assessment and plan: Continue patient's home dose of basal insulin Qualifiers: Chronic kidney disease stage: unspecified stage Qualified Code(s): E08.22 - Diabetes mellitus due to underlying condition with diabetic chronic kidney disease; Z79.4 - jail (current) use of insulin (4) HTN (hypertension) Status: Acute Assessment and plan: Controlled; continue home dose of Norvasc Qualifiers: Hypertension type: essential hypertension Qualified Code(s): I10 - Essential (primary) hypertension (5) Hyperlipidemia Status: Acute Assessment and plan: Continue home dose of statin Qualifiers: Hyperlipidemia type: unspecified Qualified Code(s): E78.5 - Hyperlipidemia, unspecified - Time Spent With Patient Total time spent is greater than 50% in coordination of care (as documented) at patient's floor/unit and/or counseling patient:
[2018-09-01] MEDS: 0.9 % Sodium Chloride 1,000 ML IVC SCH (00:49)
[2018-09-01 05:05] LABS: Basophils % 0.7 %; Eosinophils # 0.1 K/mcL (0.0-0.6); Eosinophils % 2.6 %; Hematocrit 37.2 % (35.3-44.9); Hemoglobin 12.9 g/dL (11.5-15.4); Immature Granulocytes % 0.5 % (0-4); Lymphocytes # 1.1 K/mcL (0.6-4.6); Lymphocytes % 25.4 %; Mean Corpuscular HGB Conc 34.7 g/dL (31.6-35.5); Mean Corpuscular Hemoglobin 30.8 pg (28.0-33.3); Mean Corpuscular Volume 88.8 fL (83.0-100.0); Monocytes # 0.3 K/mcL (0.0-1.3); Monocytes % 7.7 %; Neutrophils # 2.6 K/mcL (1.6-8.9); Platelet Count 158 K/mcL (140-400); Red Blood Count 4.19 M/mcL (3.82-4.97); Red Cell Distribution Width 11.6 % (11.5-14.5); Segmented Neutrophils % 63.1 %
[2018-09-01 05:20] LABS: Calcium 9.2 mg/dL (8.6-10.3); Potassium 4.3 mEq/L (3.5-5.1)
[2018-09-01 07:06] VITALS: BP 149/82
[2018-09-01] MEDS ORDERED: Aspirin 325 MG TABLET PO SCH (09:00)
[2018-09-01] MEDS ORDERED: (Linagliptin [Tradjenta] 5 MG) PO SCH (09:00)
--- NOTE | 2018-09-01 16:13 | Discharge Summary ---
Date of Encounter: 09/01/18 Time of Encounter: 09:30 - Discharge Diagnosis (1) Acute kidney injury Priority: Primary Status: Acute (2) Dehydration Priority: Primary Status: Acute (3) HTN (hypertension) Priority: Secondary Status: Acute Qualifiers: Hypertension type: essential hypertension Qualified Code(s): I10 - Essential (primary) hypertension (4) Hyperlipidemia Priority: Secondary Status: Acute Qualifiers: Hyperlipidemia type: unspecified Qualified Code(s): E78.5 - Hyperlipidemia, unspecified Hospital course: Ms. Oliver is a 72 year old female admitted here for acute kidney injury due to dehydration. Patient was started on IV hydration. Her creatinine seems to be improving and patient medicines improved. Patient left against medical advice this morning before I see her. I m not able to examined this patient since she left AMA. - Time Spent with Patient Total time spent providing and/or coordinating discharge services: - Discharge Medications Home Medications: Aspirin 325 mg PO DAILY 08/31/18 [History] Atorvastatin [Lipitor] 40 mg PO DAILY 08/31/18 [History] Escitalopram Oxalate 5 mg PO DAILY 08/31/18 [History] Linagliptin [Tradjenta] 5 mg PO DAILY 08/31/18 [History] Losartan Potassium 25 mg PO DAILY 08/31/18 [History] Metformin HCl [Glucophage Xr] 1,000 mg PO QPM 08/31/18 [History] Sulfamethoxazole/Trimeth DS [Bactrim DS] 1 tab PO BID 08/31/18 [History] Tobramycin 1 drop BOTH EYES QID 08/31/18 [History] Allergies/Adverse Reactions: Allergy/AdvReac Type Severity Reaction Status Date / Time codeine Allergy Difficulty Verified 03/08/18 12:59 Swallowing morphine Allergy Difficulty Verified 03/08/18 12:59 Swallowing Date of admission: 08/31/18 11:06 Primary care physician: Luigi Lindo MD - Constitutional Vitals: Temp Pulse Resp BP Pulse Ox 97.9 F 78 16 149/82 98 09/01/18 06:53 09/01/18 06:53 09/01/18 06:53 09/01/18 06:53 09/01/18 06:53 Exam: Unable to examine her - Patient Status Disposition: Left Against Medical Advice Condition: Good - Discharge Instructions Follow Up With: Luigi Lindo MD [Primary Care Provider] -
== END 2018-09-01 08:11 | disposition left against medical advice (07) ==
LOC: EMEROOARM 07:53 → 3BNU 07:53
PROVIDERS: ADMIT Hospitalist; ATTEND Hospitalist

== ENCOUNTER 2019-09-12 11:54 | Inpatient (IN) ==
[2019-09-12 13:52] LABS: Basophils % 0.3 %; Eosinophils # 0.1 K/mcL (0.0-0.6); Hematocrit 31.3 % (35.3-44.9); Hemoglobin 10.8 g/dL (11.5-15.4); Immature Granulocytes % 0.3 % (0-4); Lymphocytes # 1.1 K/mcL (0.6-4.6); Lymphocytes % 28.9 %; Mean Corpuscular HGB Conc 34.5 g/dL (31.6-35.5); Mean Corpuscular Hemoglobin 31.3 pg (28.0-33.3); Mean Corpuscular Volume 90.7 fL (83.0-100.0); Mean Platelet Volume 10.4 fL (9.4-12.4); Monocytes # 0.3 K/mcL (0.0-1.3); Monocytes % 7.3 %; Neutrophils # 2.2 K/mcL (1.6-8.9); Platelet Count 203 K/mcL (140-400); Red Blood Count 3.45 M/mcL (3.82-4.97); Red Cell Distribution Width 11.9 % (11.5-14.5); Segmented Neutrophils % 60.2 %; White Blood Count 3.7 K/mcL (4.3-11.1)
[2019-09-12 14:09] LABS: BUN/Creatinine Ratio 20 (6-26); Blood Urea Nitrogen 17 mg/dL (8-23); Calcium 9.2 mg/dL (8.6-10.3); Carbon Dioxide 27 mEq/L (23-29); Chloride 105 mEq/L (98-107); Glucose 205 mg/dL (70-105); Osmolality,Calculated 291 (280-300); Potassium 3.9 mEq/L (3.5-5.1); Sodium 137 mEq/L (136-145); eGFR For African Americans > 60 (> 60); eGFR For Non-African Americans > 60 (> 60)
[2019-09-12] MEDS ORDERED: Cefepime HCl 1,000 MG in 0.9 % Sodium Chloride Mini Bag 100 ML IVPB STA (14:47)
[2019-09-12] MEDS ORDERED: Vancomycin (wt based) 1,000 MG VIAL IV STA (14:47)
[2019-09-12] MEDS ORDERED: Cefepime HCl 1,000 MG in Water for inj. (sterile) 10 ML IVP STA (15:21)
[2019-09-12] MEDS ORDERED: *HR* LORazepam 2 MG/ML VIAL IVP ONE ×2 (15:29→17:31)
[2019-09-12] MEDS ORDERED: Naloxone 0.4 MG/ML INJ IVP PRN (15:50)
[2019-09-12] MEDS ORDERED: Ondansetron 4 MG/2 ML VIAL IVP PRN (15:50)
[2019-09-12] MEDS ORDERED: Acetaminophen 325 MG TABLET PO PRN (15:50)
[2019-09-12] MEDS ORDERED: Dextrose Gel 15 GM/37.5 ML TUBE PO PRN ×2 (15:52)
[2019-09-12] MEDS ORDERED: D5% in Water 1,000 ML IVC PRN (15:52)
[2019-09-12] MEDS ORDERED: *HR* Dextrose 50 % in Water (Syg) 50 ML SYRINGE IVP PRN (15:52)
[2019-09-12 16:19] LABS: Estimated Average Glucose 160 mg/dl
[2019-09-12 16:35] LABS: C-Reactive Protein < 5 mg/L (Less than 10)
[2019-09-12] MEDS: Piperacillin/Tazobactam 3.375 GM in 0.9 % Sodium Chloride Mini Bag 100 ML IVPB SCH (17:57)
[2019-09-12] MEDS: Insulin LISPRO 300 UNITS/3 ML VIAL SQ SCH (18:14)
[2019-09-12] MEDS: *HR* Heparin 5,000 UNIT/ML VIAL SQ SCH (18:17)
[2019-09-12] MEDS ORDERED: Insulin LISPRO 300 UNITS/3 ML VIAL SQ SCH (21:00)
[2019-09-13] MEDS: Piperacillin/Tazobactam 3.375 GM in 0.9 % Sodium Chloride Mini Bag 100 ML IVPB SCH ×3 (01:47→16:40)
[2019-09-13] MEDS: *HR* Heparin 5,000 UNIT/ML VIAL SQ SCH ×2 (05:20→17:25)
[2019-09-13 06:01] LABS: Basophils % 0.5 %; Eosinophils # 0.1 K/mcL (0.0-0.6); Eosinophils % 2.6 %; Hematocrit 30.9 % (35.3-44.9); Hemoglobin 10.8 g/dL (11.5-15.4); INR 1.1; Immature Granulocytes % 0.2 % (0-4); Lymphocytes # 1.2 K/mcL (0.6-4.6); Lymphocytes % 27.8 %; Mean Corpuscular Hemoglobin 31.6 pg (28.0-33.3); Mean Corpuscular Volume 90.4 fL (83.0-100.0); Mean Platelet Volume 10.4 fL (9.4-12.4); Monocytes # 0.4 K/mcL (0.0-1.3); Neutrophils # 2.5 K/mcL (1.6-8.9); Platelet Count 195 K/mcL (140-400); Prothrombin Time 12.4 Seconds (9.4-12.1); Red Blood Count 3.42 M/mcL (3.82-4.97); Red Cell Distribution Width 11.8 % (11.5-14.5); Segmented Neutrophils % 59.9 %; White Blood Count 4.2 K/mcL (4.3-11.1)
[2019-09-13 06:04] LABS: Activated Partial Thrombo Time 39.2 Seconds (26.0-36.0)
[2019-09-13 06:19] LABS: BUN/Creatinine Ratio 15 (6-26); Blood Urea Nitrogen 14 mg/dL (8-23); Carbon Dioxide 25 mEq/L (23-29); Chloride 107 mEq/L (98-107); Glucose 143 mg/dL (70-105); Osmolality,Calculated 299 (280-300); Sodium 143 mEq/L (136-145); eGFR For African Americans > 60 (> 60); eGFR For Non-African Americans 60 (> 60)
[2019-09-13] MEDS ORDERED: Haloperidol Lactate 5 MG/ML VIAL IVP ONE (08:33)
[2019-09-13] MEDS: Insulin LISPRO 300 UNITS/3 ML VIAL SQ SCH ×4 (08:48→21:04)
[2019-09-13] MEDS ORDERED: Aspirin 325 MG TABLET PO SCH (09:00)
[2019-09-13] MEDS ORDERED: *HR* FentaNYL (PF) 100 MCG/2 ML VIAL ONE (12:23)
[2019-09-13] MEDS ORDERED: *HR* Midazolam HCl 2 MG/2 ML VIAL ONE (12:23)
[2019-09-13] MEDS ORDERED: Ondansetron 4 MG/2 ML VIAL ONE (12:23)
[2019-09-13] MEDS ORDERED: Dexamethasone 4 MG/ML VIAL ONE (12:23)
[2019-09-13] MEDS ORDERED: Lidocaine -MPF 2% 2 ML VIAL ONE (12:23)
[2019-09-13] MEDS ORDERED: Propofol 500 MG/50 ML INFUS..BTL ONE (12:23)
[2019-09-13] MEDS ORDERED: Naloxone 0.4 MG/ML INJ IVP PRN (14:11)
[2019-09-13] MEDS ORDERED: Ondansetron 4 MG/2 ML VIAL IVP PRN (14:11)
[2019-09-13] MEDS ORDERED: *HR* Dextrose 50 % in Water (Syg) 50 ML SYRINGE IVP PRN (14:11)
[2019-09-13] MEDS ORDERED: Dextrose Gel 15 GM/37.5 ML TUBE PO PRN ×2 (14:11)
[2019-09-13] MEDS ORDERED: D5% in Water 1,000 ML IVC PRN (14:11)
[2019-09-13] MEDS: hydrOXYzine pamoate 25 MG CAPSULE PO PRN (16:40)
[2019-09-14] MEDS: Piperacillin/Tazobactam 3.375 GM in 0.9 % Sodium Chloride Mini Bag 100 ML IVPB SCH ×4 (00:07→23:48)
[2019-09-14 01:45] LABS: Basophils % 0.4 %; Hematocrit 31.1 % (35.3-44.9); Hemoglobin 10.9 g/dL (11.5-15.4); Immature Granulocytes % 0.8 % (0-4); Lymphocytes # 0.7 K/mcL (0.6-4.6); Lymphocytes % 13.3 %; Mean Corpuscular Hemoglobin 31.5 pg (28.0-33.3); Mean Corpuscular Volume 89.9 fL (83.0-100.0); Mean Platelet Volume 10.7 fL (9.4-12.4); Monocytes # 0.3 K/mcL (0.0-1.3); Monocytes % 4.8 %; Neutrophils # 4.2 K/mcL (1.6-8.9); Platelet Count 215 K/mcL (140-400); Red Blood Count 3.46 M/mcL (3.82-4.97); Red Cell Distribution Width 11.9 % (11.5-14.5); Segmented Neutrophils % 80.7 %; White Blood Count 5.2 K/mcL (4.3-11.1)
[2019-09-14 01:55] LABS: BUN/Creatinine Ratio 17 (6-26); Blood Urea Nitrogen 18 mg/dL (8-23); Carbon Dioxide 26 mEq/L (23-29); Chloride 104 mEq/L (98-107); Glucose 194 mg/dL (70-105); Osmolality,Calculated 297 (280-300); Sodium 140 mEq/L (136-145); eGFR For African Americans > 60 (> 60); eGFR For Non-African Americans 50 (> 60)
[2019-09-14] MEDS: *HR* Heparin 5,000 UNIT/ML VIAL SQ SCH ×2 (05:30→17:23)
[2019-09-14] MEDS: Insulin LISPRO 300 UNITS/3 ML VIAL SQ SCH ×4 (08:33→19:33)
[2019-09-14] MEDS: Aspirin 325 MG TABLET PO SCH (08:45)
[2019-09-14] MEDS: QUEtiapine Fumarate 25 MG TABLET PO SCH ×2 (09:39→19:47)
[2019-09-14] MEDS: hydrOXYzine pamoate 25 MG CAPSULE PO PRN (21:56)
[2019-09-15 01:11] LABS: Basophils % 0.4 %; Eosinophils # 0.1 K/mcL (0.0-0.6); Eosinophils % 2.2 %; Hematocrit 34.5 % (35.3-44.9); Immature Granulocytes % 0.2 % (0-4); Lymphocytes % 40.6 %; Mean Corpuscular HGB Conc 34.8 g/dL (31.6-35.5); Mean Corpuscular Hemoglobin 31.4 pg (28.0-33.3); Mean Corpuscular Volume 90.3 fL (83.0-100.0); Mean Platelet Volume 10.1 fL (9.4-12.4); Monocytes # 0.4 K/mcL (0.0-1.3); Neutrophils # 2.5 K/mcL (1.6-8.9); Platelet Count 205 K/mcL (140-400); Red Blood Count 3.82 M/mcL (3.82-4.97); Red Cell Distribution Width 11.9 % (11.5-14.5); Segmented Neutrophils % 49.6 %
[2019-09-15 01:33] LABS: BUN/Creatinine Ratio 18 (6-26); Blood Urea Nitrogen 17 mg/dL (8-23); Calcium 9.4 mg/dL (8.6-10.3); Carbon Dioxide 26 mEq/L (23-29); Chloride 105 mEq/L (98-107); Glucose 178 mg/dL (70-105); Osmolality,Calculated 296 (280-300); Potassium 3.9 mEq/L (3.5-5.1); Sodium 140 mEq/L (136-145); eGFR For African Americans > 60 (> 60); eGFR For Non-African Americans 56 (> 60)
[2019-09-15] MEDS: *HR* Heparin 5,000 UNIT/ML VIAL SQ SCH ×2 (05:24→16:42)
[2019-09-15] MEDS: Piperacillin/Tazobactam 3.375 GM in 0.9 % Sodium Chloride Mini Bag 100 ML IVPB SCH ×2 (09:02→16:42)
[2019-09-15] MEDS: Aspirin 325 MG TABLET PO SCH (09:02)
[2019-09-15] MEDS: Insulin LISPRO 300 UNITS/3 ML VIAL SQ SCH ×4 (09:03→20:13)
[2019-09-15] MEDS: QUEtiapine Fumarate 25 MG TABLET PO SCH ×2 (09:03→20:13)
[2019-09-15] MEDS: hydrOXYzine pamoate 25 MG CAPSULE PO PRN (16:41)
[2019-09-16] MEDS: Piperacillin/Tazobactam 3.375 GM in 0.9 % Sodium Chloride Mini Bag 100 ML IVPB SCH ×3 (01:11→16:00)
[2019-09-16 06:19] LABS: Hematocrit 33.2 % (35.3-44.9); Hemoglobin 11.5 g/dL (11.5-15.4); Mean Corpuscular HGB Conc 34.6 g/dL (31.6-35.5); Mean Corpuscular Hemoglobin 31.6 pg (28.0-33.3); Mean Corpuscular Volume 91.2 fL (83.0-100.0); Mean Platelet Volume 10.4 fL (9.4-12.4); Platelet Count 184 K/mcL (140-400); Red Blood Count 3.64 M/mcL (3.82-4.97); White Blood Count 3.7 K/mcL (4.3-11.1)
[2019-09-16] MEDS: *HR* Heparin 5,000 UNIT/ML VIAL SQ SCH ×2 (06:26→17:04)
[2019-09-16] MEDS: Insulin LISPRO 300 UNITS/3 ML VIAL SQ SCH ×4 (07:44→21:58)
[2019-09-16] MEDS: QUEtiapine Fumarate 25 MG TABLET PO SCH ×2 (07:47→19:39)
[2019-09-16] MEDS: Aspirin 325 MG TABLET PO SCH (07:48)
[2019-09-17] MEDS: Piperacillin/Tazobactam 3.375 GM in 0.9 % Sodium Chloride Mini Bag 100 ML IVPB SCH ×2 (00:57→07:56)
[2019-09-17 02:12] LABS: Hematocrit 33.5 % (35.3-44.9); Hemoglobin 11.4 g/dL (11.5-15.4); Mean Corpuscular Hemoglobin 31.1 pg (28.0-33.3); Mean Corpuscular Volume 91.5 fL (83.0-100.0); Mean Platelet Volume 11.3 fL (9.4-12.4); Platelet Count 163 K/mcL (140-400); Red Blood Count 3.66 M/mcL (3.82-4.97); Red Cell Distribution Width 11.9 % (11.5-14.5); White Blood Count 4.1 K/mcL (4.3-11.1)
[2019-09-17 02:29] LABS: BUN/Creatinine Ratio 16 (6-26); Blood Urea Nitrogen 17 mg/dL (8-23); Calcium 9.2 mg/dL (8.6-10.3); Carbon Dioxide 29 mEq/L (23-29); Chloride 105 mEq/L (98-107); Glucose 171 mg/dL (70-105); Osmolality,Calculated 300 (280-300); Potassium 3.7 mEq/L (3.5-5.1); Sodium 142 mEq/L (136-145); eGFR For African Americans > 60 (> 60); eGFR For Non-African Americans 52 (> 60)
[2019-09-17] MEDS: *HR* Heparin 5,000 UNIT/ML VIAL SQ SCH ×2 (06:27→17:31)
[2019-09-17] MEDS: QUEtiapine Fumarate 25 MG TABLET PO SCH ×2 (07:55→22:02)
[2019-09-17] MEDS: Aspirin 325 MG TABLET PO SCH (07:55)
[2019-09-17] MEDS: Insulin LISPRO 300 UNITS/3 ML VIAL SQ SCH ×4 (08:17→22:03)
[2019-09-17] MEDS ORDERED: NON-FORMULARY MEDICATION 1 EACH EACH (Losartan Potassium [Cozaar] 50 MG) PO SCH (09:00)
[2019-09-17] MEDS: Acetaminophen 325 MG TABLET PO PRN ×2 (15:39→22:02)
[2019-09-17] MEDS: Cefepime HCl 2,000 MG in 0.9 % Sodium Chloride Mini Bag 100 ML IVPB SCH (17:32)
[2019-09-17] MEDS: hydrOXYzine pamoate 25 MG CAPSULE PO PRN (22:02)
[2019-09-18 05:33] LABS: White Blood Count 4.3 K/mcL (4.3-11.1)
[2019-09-18 05:34] LABS: Basophils % 0.5 %; Eosinophils # 0.2 K/mcL (0.0-0.6); Eosinophils % 3.5 %; Hematocrit 28.7 % (35.3-44.9); Immature Granulocytes % 0.2 % (0-4); Lymphocytes # 1.5 K/mcL (0.6-4.6); Lymphocytes % 34.1 %; Mean Corpuscular HGB Conc 33.1 g/dL (31.6-35.5); Mean Corpuscular Hemoglobin 31.4 pg (28.0-33.3); Mean Corpuscular Volume 94.7 fL (83.0-100.0); Mean Platelet Volume 10.5 fL (9.4-12.4); Monocytes # 0.5 K/mcL (0.0-1.3); Monocytes % 10.8 %; Neutrophils # 2.2 K/mcL (1.6-8.9); Platelet Count 151 K/mcL (140-400); Red Blood Count 3.03 M/mcL (3.82-4.97); Red Cell Distribution Width 12.2 % (11.5-14.5); Segmented Neutrophils % 50.9 %
[2019-09-18 05:36] LABS: Hemoglobin 9.5 g/dL (11.5-15.4)
[2019-09-18 05:44] LABS: BUN/Creatinine Ratio 22 (6-26); Blood Urea Nitrogen 29 mg/dL (8-23); C-Reactive Protein < 5 mg/L (Less than 10); Calcium 8.7 mg/dL (8.6-10.3); Carbon Dioxide 26 mEq/L (23-29); Chloride 108 mEq/L (98-107); Glucose 154 mg/dL (70-105); Osmolality,Calculated 297 (280-300); Potassium 4.4 mEq/L (3.5-5.1); Sodium 139 mEq/L (136-145); eGFR For African Americans 47 (> 60); eGFR For Non-African Americans 39 (> 60)
[2019-09-18] MEDS: Cefepime HCl 2,000 MG in 0.9 % Sodium Chloride Mini Bag 100 ML IVPB SCH ×2 (05:52→17:12)
[2019-09-18] MEDS: *HR* Heparin 5,000 UNIT/ML VIAL SQ SCH ×2 (05:53→17:12)
[2019-09-18] MEDS: Insulin LISPRO 300 UNITS/3 ML VIAL SQ SCH ×4 (08:53→21:53)
[2019-09-18] MEDS: Aspirin 325 MG TABLET PO SCH (09:52)
[2019-09-18] MEDS: Acetaminophen 325 MG TABLET PO PRN (09:53)
[2019-09-18] MEDS: QUEtiapine Fumarate 25 MG TABLET PO SCH ×2 (09:53→21:54)
[2019-09-18] MEDS: hydrOXYzine pamoate 25 MG CAPSULE PO PRN (21:54)
[2019-09-19] MEDS: Cefepime HCl 2,000 MG in 0.9 % Sodium Chloride Mini Bag 100 ML IVPB SCH ×2 (05:19→15:40)
[2019-09-19] MEDS: *HR* Heparin 5,000 UNIT/ML VIAL SQ SCH ×2 (05:19→18:20)
[2019-09-19 08:09] LABS: Hematocrit 31.1 % (35.3-44.9); Hemoglobin 10.4 g/dL (11.5-15.4); Mean Corpuscular HGB Conc 33.4 g/dL (31.6-35.5); Mean Corpuscular Volume 95.7 fL (83.0-100.0); Mean Platelet Volume 10.6 fL (9.4-12.4); Platelet Count 170 K/mcL (140-400); Red Blood Count 3.25 M/mcL (3.82-4.97); White Blood Count 3.7 K/mcL (4.3-11.1)
[2019-09-19] MEDS: Aspirin 325 MG TABLET PO SCH (08:18)
[2019-09-19] MEDS: QUEtiapine Fumarate 25 MG TABLET PO SCH ×2 (08:18→21:38)
[2019-09-19] MEDS: Insulin LISPRO 300 UNITS/3 ML VIAL SQ SCH ×4 (08:19→21:35)
[2019-09-19 08:30] LABS: BUN/Creatinine Ratio 27 (6-26); Blood Urea Nitrogen 28 mg/dL (8-23); Calcium 8.9 mg/dL (8.6-10.3); Carbon Dioxide 26 mEq/L (23-29); Chloride 108 mEq/L (98-107); Glucose 132 mg/dL (70-105); Osmolality,Calculated 301 (280-300); Potassium 4.1 mEq/L (3.5-5.1); Sodium 142 mEq/L (136-145); eGFR For African Americans > 60 (> 60); eGFR For Non-African Americans 53 (> 60)
[2019-09-19] MEDS: hydrOXYzine pamoate 25 MG CAPSULE PO PRN (21:38)
[2019-09-20] MEDS: *HR* Heparin 5,000 UNIT/ML VIAL SQ SCH (05:12)
[2019-09-20] MEDS: Cefepime HCl 2,000 MG in 0.9 % Sodium Chloride Mini Bag 100 ML IVPB SCH (05:12)
[2019-09-20] MEDS: Insulin LISPRO 300 UNITS/3 ML VIAL SQ SCH ×2 (09:03→13:22)
[2019-09-20] MEDS: QUEtiapine Fumarate 25 MG TABLET PO SCH (09:11)
[2019-09-20] MEDS: Aspirin 325 MG TABLET PO SCH (09:11)
[2019-09-20 12:08] VITALS: BP 108/64
== END 2019-09-20 15:28 | disposition home or self-care (01) | DRG 622 ==
LOC: EMEROOARM 11:54 → 3NENU 11:54 → SUATTDRO 15:58 → 3NENU 16:50 → SUATTDRO 09-13 13:15 → 3ANU 09-17 14:15
PROVIDERS: ADMIT Internal Medicine; ATTEND Internal Medicine

== ENCOUNTER 2020-06-07 16:54 | Observation (INO) ==
[2020-06-07] MEDS ORDERED: Naloxone 0.4 MG/ML INJ IVP PRN (19:36)
[2020-06-07] MEDS ORDERED: Ondansetron 4 MG/2 ML VIAL IVP PRN (19:36)
[2020-06-07] MEDS ORDERED: 0.9 % Sodium Chloride 1,000 ML IVC SCH (19:45)
[2020-06-07] MEDS ORDERED: Ketorolac 15 MG/ML VIAL IVP PRN (20:14)
[2020-06-07] MEDS ORDERED: D5% in Water 1,000 ML IVC PRN (20:18)
[2020-06-07] MEDS ORDERED: Dextrose Gel 15 GM/37.5 ML TUBE PO PRN ×2 (20:18)
[2020-06-07] MEDS ORDERED: *HR* Dextrose 50 % in Water (Vial) 50 ML VIAL IVP PRN (20:18)
[2020-06-07] MEDS: Insulin LISPRO 300 UNITS/3 ML VIAL SQ SCH (22:12)
[2020-06-08] MEDS ORDERED: Lidocaine -MPF 4% 5 ML AMPUL ONE ×2 (07:31→10:16)
[2020-06-08] MEDS: Insulin LISPRO 300 UNITS/3 ML VIAL SQ SCH ×2 (07:47→22:36)
[2020-06-08] MEDS ORDERED: Ondansetron 4 MG/2 ML VIAL IVP PRN ×3 (08:35→12:43)
[2020-06-08] MEDS ORDERED: *HR* FentaNYL (PF) 100 MCG/2 ML VIAL IVP PRN ×2 (08:35→12:43)
[2020-06-08 08:43] LABS: Basophils % 0.5 %; Eosinophils # 0.2 K/mcL (0.0-0.6); Eosinophils % 3.2 %; Hematocrit 33.4 % (35.3-44.9); Hemoglobin 11.1 g/dL (11.5-15.4); Immature Granulocytes % 0.3 % (0-4); Lymphocytes # 1.1 K/mcL (0.6-4.6); Mean Corpuscular HGB Conc 33.2 g/dL (31.6-35.5); Mean Corpuscular Hemoglobin 31.2 pg (28.0-33.3); Mean Corpuscular Volume 93.8 fL (83.0-100.0); Mean Platelet Volume 10.7 fL (9.4-12.4); Monocytes # 0.5 K/mcL (0.0-1.3); Monocytes % 8.2 %; Neutrophils # 4.2 K/mcL (1.6-8.9); Platelet Count 159 K/mcL (140-400); Red Blood Count 3.56 M/mcL (3.82-4.97); Red Cell Distribution Width 11.9 % (11.5-14.5); Segmented Neutrophils % 69.8 %
[2020-06-08 08:48] LABS: INR 1.1; Prothrombin Time 12.5 Seconds (9.4-12.1)
[2020-06-08 08:50] LABS: Activated Partial Thrombo Time 31.3 Seconds (26.0-36.0)
[2020-06-08] MEDS ORDERED: cefTRIAXone 1,000 MG in 0.9 % Sodium Chloride Mini Bag 100 ML IVPB SCH (09:00)
[2020-06-08 09:01] LABS: Albumin 3.7 g/dL (3.5-5.7); Albumin/Globulin Ratio 1.4 (1.1-2.2); Bilirubin,Total 0.5 mg/dL (0.3-1.0); Calcium 8.8 mg/dL (8.6-10.3); Globulin 2.6 g/dL (2.4-3.5); Total Protein 6.3 g/dL (6.4-8.9)
[2020-06-08 09:21] LABS: Amorphous Sediment,Urine Few per hpf (None-Few); Bilirubin,Urine Negative (Negative); Blood,Urine Large (Negative); Clarity,Urine Turbid (Clear); Color,Urine Light-Yellow (Yellow); Glucose,Urine (UA) Normal (Normal); Ketones,Urine Negative (Negative); Leukocyte Esterase,Urine Large (Negative); Nitrite,Urine Negative (Negative); Protein,Urine Trace mg/dL (Neg-Trace); RBC,Urine 50-100 per hpf (0-3); Specific Gravity,Urine 1.011 (1.010-1.025); Squamous Epithelial Cell,Urine Few per hpf (None-Few); Urobilinogen,Urine Normal (Normal); WBC,Urine TNTC per hpf (0-3)
[2020-06-08] MEDS ORDERED: *HR* Succinylcholine 200 MG/10 ML VIAL IVP ONE (10:16)
[2020-06-08] MEDS ORDERED: Lidocaine -MPF 2% 2 ML VIAL ONE (10:16)
[2020-06-08] MEDS ORDERED: Ondansetron 4 MG/2 ML VIAL ONE (10:16)
[2020-06-08] MEDS ORDERED: Dexamethasone 4 MG/ML VIAL ONE (10:16)
[2020-06-08] MEDS ORDERED: *HR* Propofol 200 MG/20 ML VIAL IVP ONE (10:17)
[2020-06-08] MEDS ORDERED: *HR* FentaNYL (PF) 100 MCG/2 ML VIAL ONE (10:17)
[2020-06-08] MEDS ORDERED: Isovue-300 50ML VIAL ONE (10:27)
[2020-06-08] MEDS ORDERED: EPHEDrine 50 MG/ML VIAL ONE (11:05)
[2020-06-08] MEDS ORDERED: Ketorolac 15 MG/ML VIAL IVP PRN (12:43)
[2020-06-08] MEDS ORDERED: *HR* Dextrose 50 % in Water (Vial) 50 ML VIAL IVP PRN (12:43)
[2020-06-08] MEDS ORDERED: Dextrose Gel 15 GM/37.5 ML TUBE PO PRN ×2 (12:43)
[2020-06-08] MEDS ORDERED: D5% in Water 1,000 ML IVC PRN (12:43)
[2020-06-08] MEDS ORDERED: Naloxone 0.4 MG/ML INJ IVP PRN (12:43)
[2020-06-08] MEDS: QUEtiapine Fumarate 25 MG TABLET PO SCH (20:31)
[2020-06-08] MEDS ORDERED: Insulin LISPRO 300 UNITS/3 ML VIAL SQ SCH (23:00)
[2020-06-09 01:18] LABS: Basophils % 0.3 %; Eosinophils % 0.3 %; Hematocrit 30.2 % (35.3-44.9); Hemoglobin 10.2 g/dL (11.5-15.4); Immature Granulocytes % 0.3 % (0-4); Lymphocytes # 0.8 K/mcL (0.6-4.6); Mean Corpuscular HGB Conc 33.8 g/dL (31.6-35.5); Mean Corpuscular Hemoglobin 31.7 pg (28.0-33.3); Mean Corpuscular Volume 93.8 fL (83.0-100.0); Mean Platelet Volume 10.2 fL (9.4-12.4); Monocytes # 0.6 K/mcL (0.0-1.3); Monocytes % 7.7 %; Neutrophils # 6.1 K/mcL (1.6-8.9); Platelet Count 141 K/mcL (140-400); Red Blood Count 3.22 M/mcL (3.82-4.97); Segmented Neutrophils % 80.4 %; White Blood Count 7.6 K/mcL (4.3-11.1)
[2020-06-09 01:37] LABS: Calcium 8.5 mg/dL (8.6-10.3); Potassium 4.1 mEq/L (3.5-5.1)
[2020-06-09] MEDS ORDERED: CefTRIAXone 1,000 MG VIAL IM ONE (08:02)
[2020-06-09] MEDS: Insulin LISPRO 300 UNITS/3 ML VIAL SQ SCH ×2 (08:50→11:52)
[2020-06-09] MEDS ORDERED: Lidocaine -MPF 1% 2 ML VIAL IM ONE (08:51)
[2020-06-09] MEDS ORDERED: cefTRIAXone 1,000 MG in 0.9 % Sodium Chloride Mini Bag 100 ML IVPB SCH (09:00)
[2020-06-09] MEDS: QUEtiapine Fumarate 25 MG TABLET PO SCH (09:44)
[2020-06-09 10:40] VITALS: BP 114/69
== END 2020-06-09 15:12 | disposition home or self-care (01) ==
LOC: 3ANU → SUATTDRO 19:10 → 3ANU 06-08 19:28
PROVIDERS: ADMIT Internal Medicine; ATTEND Internal Medicine